=== PATIENT | male | born 1950 | race African-American/Black ===

== ENCOUNTER 2017-07-21 12:44 | Inpatient (IN) | payer MEDICARE, MEDICAID ==
--- NOTE | 2017-07-21 13:13 | ER Document Report ---
ED General - General Chief Complaint: High Blood Pressure Stated Complaint: HEADACHE Time Seen by Provider: 07/21/17 13:11 Notes: The patient is a 66-year-old male, past medical history hypertension, presents with 2 days of slurred speech and numbness in his right arm. He also had a dull headache. He has had this headache in the past and it has improved. Pt has a history of hypertension, but has never been prescribed any medications. He has not seen a PMD in 3 years. He denies chest pain, shortness of breath, focal weakness, blurry vision, back pain, ataxia, LOC or abdominal pain. TRAVEL OUTSIDE OF THE [place] IN LAST 30 DAYS: No - Related Data Allergies/Adverse Reactions: No Known Allergies Allergy (Verified 04/24/14 10:21) Past Medical History - General Information source: Patient - Social History Smoking Status: Unknown if Ever Smoked Family History: Reviewed & Not Pertinent - Past Medical History Cardiac Medical History: Reports: Hx Hypertension - Immunizations Hx Diphtheria, Pertussis, Tetanus Vaccination: No Review of Systems - Review of Systems Notes: REVIEW OF SYSTEMS: CONSTITUTIONAL: -fevers, -chills EENT: -eye pain, -difficulty swallowing, -nasal congestion CARDIOVASCULAR: -chest pain, -syncope. RESPIRATORY: -cough, -SOB GASTROINTESTINAL: -abdominal pain, -nausea, -vomiting, -diarrhea GENITOURINARY: -dysuria, -hematuria MUSCULOSKELETAL: -back pain, -neck pain SKIN: -rash or skin lesions. HEMATOLOGIC: -easy bruising or bleeding. LYMPHATIC: -swollen, enlarged glands. NEUROLOGICAL: -altered mental status or loss of consciousness, +headache, + slurred speech PSYCHIATRIC: -anxiety, -depression. ALL OTHER SYSTEMS REVIEWED AND NEGATIVE. Physical Exam - Vital signs Vitals: Resp 17 07/21/17 12:53 - Notes Notes: PHYSICAL EXAMINATION: GENERAL: Well-appearing, well-nourished and in no acute distress. HEAD: Atraumatic, normocephalic. EYES: Pupils equal round and reactive to light, extraocular movements intact, sclera anicteric, conjunctiva are normal. ENT: nares patent, oropharynx clear without exudates. Moist mucous membranes. NECK: Normal range of motion, supple without lymphadenopathy LUNGS: Breath sounds clear to auscultation bilaterally and equal. No wheezes rales or rhonchi. HEART: Regular rate and rhythm without murmurs ABDOMEN: Soft, nontender, normoactive bowel sounds. No guarding, no rebound. No masses appreciated. EXTREMITIES: Normal range of motion, no pitting or edema. No cyanosis. NEUROLOGICAL: Cranial nerves grossly intact. Mild dysarthria. 5/5 strength in all 4 extremities. Mild numbness n right arm. Normal gait. PSYCH: Normal mood, normal affect. SKIN: Warm, Dry, normal turgor, no rashes or lesions noted. Course - Re-evaluation Re-evalutation: Patient hypertensive with 2 days of dysarthria and mild sensory changes in his right upper extremity. His NIHSS is 2 and his ABCD2 score is 5. Pt is not a TPA candidate due to 2 days since onset of symptoms and his mild symptoms. Pt very hypertensive, but this is most likely chronic in nature. However, with his new neurologic symptoms, will begin Cardene drip with goal to lower MAP 25% ( from 123 to 93). (Labetalol on national shortage). 07/21/17 14:46 Spoke to Dolores Crowe NP, who has accepted patient to [facility] as Inpatient. Family and patient comfortable with plan. - Vital Signs Vital signs: Temp Pulse Resp BP Pulse Ox 97.5 F 21 H 188/93 H 98 07/21/17 13:52 07/21/17 14:31 07/21/17 14:31 07/21/17 14:31 - Laboratory Result Diagrams: 07/21/17 13:03 07/21/17 12:24 Laboratory results interpreted by me: 07/21/17 07/21/17 12:24 13:03 RDW 14.4 H ALT 20 L Creatine Kinase 30 L - Diagnostic Test Radiology reviewed: Image reviewed, Reports reviewed Radiology results interpreted by me: CT Head: NAD CXR: NAD Critical Care Note - Critical Care Note Total time excluding time spent on procedures (mins): 35 Discharge - Discharge Clinical Impression: Dysarthria, Right arm numbness, Hypertensive emergency CVA (cerebral vascular accident) Qualifiers: CVA mechanism: unspecified Qualified Code(s): I63.9 - Cerebral infarction, unspecified Condition: Stable Disposition: ADMITTED INPATIENT Admitting Provider: Hospitalist - Dolores Crowe Unit Admitted: [facility]
[2017-07-21 13:16] LABS: ABSOLUTE LYMPHOCYTES (AUTO) 2.3 10^3/uL (0.5-4.7); ABSOLUTE MONOCYTES (AUTO) 0.4 10^3/uL (0.1-1.4); ABSOLUTE NEUT (AUTO) 6.7 10^3/uL (1.7-8.2); BASOPHILS % (AUTO) 0.3 % (0-2); EOSINOPHILS % (AUTO) 0.1 % (0-6); HEMATOCRIT 46.5 % (37.9-51.0); HEMOGLOBIN 15.9 g/dL (13.5-17.0); MEAN CORPUSCULAR HEMOGLOBIN 32.3 pg (27.0-33.4); MEAN CORPUSCULAR HGB CONC 34.1 g/dL (32.0-36.0); MEAN CORPUSCULAR VOLUME 95 fl (80-97); MONOCYTES % (AUTO) 4.2 % (3-13); PLATELET COUNT 235 10^3/uL (150-450); RED BLOOD COUNT 4.92 10^6/uL (4.35-5.55); RED CELL DISTRIBUTION WIDTH 14.4 % (11.5-14.0); SEGMENTED NEUTROPHILS % (AUTO) 71.4 % (42-78); TOTAL CELLS COUNTED % (AUTO) 100 %; WHITE BLOOD COUNT 9.4 10^3/uL (4.0-10.5)
[2017-07-21 13:19] LABS: INTERNATIONAL RATION (INR) 0.92
[2017-07-21 13:20] LABS: PARTIAL THROMBOPLASTIN TIME 30.7 SEC (23.5-35.8)
[2017-07-21 13:22] LABS: PROTHROMBIN TIME 12.8 SEC (11.4-15.4)
--- NOTE | 2017-07-21 13:35 | RADIOLOGY REPORT (SQ) ---
EXAM DESCRIPTION: CT HEAD WITHOUT COMPLETED DATE/TIME: 07/21/2017 1:21 pm REASON FOR STUDY: slured speech COMPARISON: April 2014 TECHNIQUE: Axial images acquired through the brain without intravenous contrast. Images reviewed wi th bone, brain and subdural windows. Additional sagittal and coronal reconstructions were generated. Images stored on PACS. All CT scanners at this facility use dose modulation, iterative reconstruction, and/or weight based d osing when appropriate to reduce radiation dose to as low as reasonably achievable (ALARA). [facility]: Dose Right [facility]: CareDose [facility]: Dose Right [facility]: Teradose 4D [facility]: Smart Wego RADIATION DOSE: CT Rad equipment meets quality standard of care and radiation dose reduction techniq ues were employed. CTDIvol: 53.2 mGy. DLP: 1017 mGy-cm. mGy. LIMITATIONS: None. FINDINGS: VENTRICLES: Normal size and contour. CEREBRUM: No masses. No hemorrhage. No midline shift. No evidence for acute infarction. Normal gra y/white matter differentiation. No areas of low density in the white matter. CEREBELLUM: No masses. No hemorrhage. No alteration of density. No evidence for acute infarction. EXTRAAXIAL SPACES: No fluid collections. No masses. ORBITS AND GLOBE: No intra- or extraconal masses. Normal contour of globe without masses. CALVARIUM: No fracture. PARANASAL SINUSES: The previously described left maxillary mucosal polyp retention cyst is again iden tified. SOFT TISSUES: No mass or hematoma. OTHER: No other significant finding. IMPRESSION: No significant intracranial abnormalities were identified. No significant interval austin ge as compared to the previous study. Findings as noted above. EVIDENCE OF ACUTE STROKE: NO. COMMENT: Quality ID # [id number]: Final reports with documentation of one or more dose reduction techniques (e.g., Automated exposure control, adjustment of the mA and/or kV according to patient size, use of iterative reconstruction technique) TECHNICAL DOCUMENTATION: JOB ID: [id number] [employer]- All Rights Reserved Reading location - IP/workstation name: [email or web address]
[2017-07-21] MEDS ORDERED: LABETALOL HCL INJ 20 MG/4 ML DISP.SYRIN IV ONE (13:41)
--- NOTE | 2017-07-21 13:45 | RADIOLOGY REPORT (SQ) ---
EXAM DESCRIPTION: CHEST SINGLE VIEW COMPLETED DATE/TIME: 07/21/2017 1:20 pm REASON FOR STUDY: slured speech COMPARISON: April 2014 EXAM PARAMETERS: NUMBER OF VIEWS: One view. TECHNIQUE: Single frontal radiographic view of the chest acquired. RADIATION DOSE: NA LIMITATIONS: None. FINDINGS: LUNGS AND PLEURA: No opacities, masses or pneumothorax. No pleural effusion. MEDIASTINUM AND HILAR STRUCTURES: No masses. Contour normal. HEART AND VASCULAR STRUCTURES: Heart normal in size. Normal vasculature. BONES: No acute findings. HARDWARE: None in the chest. OTHER: No other significant finding. IMPRESSION: NO ACUTE RADIOGRAPHIC FINDING IN THE CHEST. TECHNICAL DOCUMENTATION: JOB ID: [id number] [employer]- All Rights Reserved Reading location - IP/workstation name: [email or web address]
--- NOTE | 2017-07-21 13:45 | ER Document Report ---
ED NIH Stroke Scale - NIH Stroke Scale When completed:: Before Alteplase *: 1. NIH scale should be completed with appropriate accompanying assessment tools. *: 2. The NIH should reflect what the patient is capable of doing and should not be coached by the clinician. 1a. Level of Consciousness: 0=Alert;keenly responsive -: 1=Drowsy -: 2=Obtunded -: 3=Coma/unresponsive or reflex to noxious stimuli. 1a. Responses: 0 1b. Orientation Questions: a. What month is it? -: b. How old are you? -: 0=Answers both questions correctly. -: 1=Answers one question correctly or patient is intubated or has orotracheal trauma. -: 2=Answers neither question correctly. 1b. Responses: 0 1c. Response to commands: a. Open and close eyes? -: b. Therapeutic Riding Instructor and release hand? -: Credit is given despite weakness. Demonstration of task is permitted. Substitute command if hands cannot be used. -: 0=Performs both tasks correctly -: 1=Performs one task correctly -: 2=Performs neither task correctly 1c. Responses: 0 2. Gaze: Establish eye contact and instruct patient to "Follow my finger" -: 0=Normal -: 1=Partial gaze palsy. Gaze is abnormal in one or both eyes, but where forced deviation or total gaze paresis is not present. -: 2=Forced deviation or total gaze paresis. 2. Responses: 0 3. Visual Pizano: Sees fingers in all four quadrants. -: 0=No visual loss. -: 1=Partial hemianopsia. -: 2=Complete hemianopsia. -: 3=Bilateral hemianopsia (including Cortical blindness) 3. Responses: 0 4. Facial Movement: Instruct patient to: -: a. Show me your teeth -: b. Raise your eyebrows -: c. Close your eyes -: d. Smile -: 0=Normal symmetrical movement -: 1=Minor paralysis (flattened nasolabial fold, asymmetry on smiling). -: 2=Partial paralysis (total or near total paralysis of lower face). -: 3=Complete paralysis of upper and lower face 4. Responses: 0 5. Motor functions (left arm): Alternate sides and extend each arm with palms down (90 degrees if sitting or 45 degrees for supine). -: 0=No drift;limb holds for full 10 seconds. -: 1=Drift; limb holds but drifts down before full 10 seconds, but does not hit bed. -: 2=Some effort against gravity; limb cannot get to or maintain position. -: 3=No effort against gravity; limb falls. -: 4=No movement. -: UN=Amputation, joint fusion, explain in comments. 5. Responses (left arm): 0 5. Motor Functions (right arm): Alternate sides and extend each arm with palms down (90 degrees if sitting or 45 degrees for supine). -: 0=No drift;limb holds for full 10 seconds. -: 1=Drift; limb holds but drifts down before full 10 seconds, but does not hit bed. -: 2=Some effort against gravity; limb cannot get to or maintain position. -: 3=No effort against gravity; limb falls. -: 4=No movement. -: UN=Amputation, joint fusion, explain in comments. 5. Responses (right arm): 0 6. Motor Functions (left leg): With patient lying supine, alternate sides and extend each leg (30 degrees always while supine). -: 0=No drift, leg holds position for full 5 seconds -: 1=Drift; leg falls before full 5 seconds but does not hit bed. -: 2=Some effort against gravity, leg falls to bed but some effort against gravity. -: 3=No effort against gravity, leg falls to bed immediately. -: 4=No movement. -: UN=Amputation, joint fusion; explain in comments. 6. Responses (left leg): 0 6. Motor Functions (right leg): With patient lying supine, alternate sides and extend each leg (30 degrees always while supine). -: 0=No drift, leg holds position for full 5 seconds -: 1=Drift; leg falls before full 5 seconds but does not hit bed. -: 2=Some effort against gravity, leg falls to bed but some effort against gravity. -: 3=No effort against gravity, leg falls to bed immediately. -: 4=No movement. -: UN=Amputation, joint fusion; explain in comments. 6. Responses (right leg): 0 7. Limb Ataxia: With eyes open instruct patient to: -: a. "Touch your finger to your nose". -: b. "Touch your heel to your teresa" -: 0=Absent -: 1=Present in one limb. -: 2=Present in two limbs. -: UN=Amputation or joint fusion; explain in comments. 7. Responses: 0 8. Sensory: Test sensation using pinprick or noxious stimuli. Test as many body parts as possible. -: 0=Normal;no sensory loss -: 1=Mile to moderate sensory loss (patient feels pin prick but is less sharp on affected side). -: 2=Severe or total sensory loss. 8. Responses: 1 9. Best Language: Instruct patient to: -: a. "Describe what you see in this picture." -: b. "Name the items in this picture." -: c. "Read these sentences." -: 0=No aphasia, normal -: 1=Mild to moderate aphasia. -: 2=Severe aphasia -: 3=Mute, global aphasia, no usable speech or auditory comprehension. 9. Responses: 0 10. Articulation, Dysarthia: Instruct patient to: -: "Read these words" or "Repeat these words" -: 0=Normal -: 1=Mild to moderate; patient may slur some words but can be understood without difficulty. -: 2=Severe; patients speech so slurred as to be unintelligible in the absence of dysphasia. -: UN=Intubated or other physical barrier, explain in comments. 10. Responses: 1 11. Extinction or inattention: 0=No abnormality -: 1= Visual, tactile, auditory, spatial, or personal inattention or extinction to bilateral simulation in one or the sensory modalities. -: 2=Profound jarret-inattention or jarret-inattention to more than one modality; does not recognize own hand. 11. Responses: 0 Total Score: 2
[2017-07-21] MEDS ORDERED: NICARDIPINE HCL RTU, ISO-OS 20 MG/200 ML RTUINJ IV PRN ×3 (13:56→16:14)
[2017-07-21 14:05] LABS: ALANINE AMINOTRANSFERASE 20 U/L (21-72); ALBUMIN 4.2 g/dL (3.5-5.0); ALKALINE PHOSPHATASE 87 U/L (38-126); ANION GAP 11 (5-19); ASPARTATE AMINO TRANSFERASE 21 U/L (17-59); BILIRUBIN,DIRECT 0.2 mg/dL (0.0-0.4); BILIRUBIN,TOTAL 0.3 mg/dL (0.2-1.3); BLOOD UREA NITROGEN 15 mg/dL (7-20); CARBON DIOXIDE 29 mmol/L (22-30); CHLORIDE 104 mmol/L (98-107); CREATINE KINASE 30 U/L (55-170); GLUCOSE 102 mg/dL (75-110); SODIUM 144.3 mmol/L (137-145); TOTAL PROTEIN 7.9 g/dL (6.3-8.2)
[2017-07-21] MEDS ORDERED: ASPIRIN 325 MG TABLET PO ONE (14:10)
[2017-07-21 14:17] LABS: CREATINE KINASE MB 0.24 ng/mL (<4.55)
[2017-07-21 14:20] LABS: TROPONIN I < 0.012 ng/mL
[2017-07-21] MEDS ORDERED: ONDANSETRON 4 MG TAB.RAPDIS PO PRN (15:41)
[2017-07-21] MEDS ORDERED: HYDRALAZINE HCL INJ/PF 20 MG/1 ML SDV IV PRN ×2 (16:06→16:14)
[2017-07-21] MEDS ORDERED: METOPROLOL TARTRATE PF/INJ 5 MG/5 ML SDV IV PRN ×2 (16:10→16:14)
--- NOTE | 2017-07-21 18:38 | PDOC H&P ---
History of Present Illness Admission Date/PCP: 07/21/17 16:33 Patient complains of: Headache. Left upper extremity weakness. History of Present Illness: FRANKLIN LEW is a 66 year old -[place] male who was brought to the emergency department by EMS when family reported that the patient began experiencing left upper extremity numbness and paralysis at 12 noon. Additionally, he was experiencing slurred speech and difficulty with word finding, unable to answer questions appropriately. History obtained from sister who currently lives with patient. The family reports that the patient had been complaining of a headache for the last 3 days. He took Motrin yesterday for his headache, but it offered no relief. Of note, the patient was admitted to [facility] approximately 3 years ago for hypertensive urgency, with the initial presenting symptom of severe headache. Since that time, the patient has not been taking antihypertensives nor has he seen a doctor. PMH includes HTN, hypertensive urgency, 21-wjpi-qrzj smoking history. Patient reportedly smokes 2 packs cigarettes per day. The patient presented to the emergency department with initial BP 213/99. Head CT normal, no evidence of hemorrhage, tumor, or other pathology. Chest x-ray benign, only demonstrating chronic COPD changes. EKG shows sinus bradycardia, no indication of ischemia or infarction. Troponin<0.012. The rest of the lab work was relatively benign. Blood pressure was initially controlled with Cardene gtt. upon assessment, the patient is resting comfortably in bed on room air. He is asleep but arousable. Patient is able to report his name, but is unable to answer time, place, situation appropriately. His speech is slurred. 4 /5 RUE & RLE strength. 5/5 LUE & LLE strength. No facial droop. PERRLA. Poor hand/eye coordination with both arms, particularly RUE. +dysmetria in RUE. Plan to admit to hospitalist service for acute CVA. Past Medical History Cardiac Medical History: Reports: Hypertension Past Surgical History Past Surgical History: Reports: None Social History Information Source: Patient Lives with: Family Smoking Status: Current Every Day Smoker Cigarettes Packs Per Day: 2 Number of Years Smokin Frequency of Alcohol Use: Rare Hx Recreational Drug Use: No Drugs: None - Advance Directive Resuscitation Status: Full Code Family History Family History: Malignancy Parental Family History Reviewed: Yes Children Family History Reviewed: Yes Sibling(s) Family History Reviewed.: Yes Medication/Allergy Home Medications: No Home Medications 07/21/17 Allergies/Adverse Reactions: No Known Allergies Allergy (Verified 07/21/17 15:20) Review of Systems ROS unobtainable: Due to mental status Physical Exam Vital Signs: Temp Pulse Resp BP Pulse Ox 97.5 F 46 L 21 H 166/69 H 97 07/21/17 13:52 07/21/17 17:58 07/21/17 17:58 07/21/17 17:58 07/21/17 17:58 General appearance: PRESENT: no acute distress, thin Eye exam: PRESENT: conjunctiva pink Mouth exam: PRESENT: moist Teeth exam: PRESENT: poor dentation Neck exam: PRESENT: full ROM Respiratory exam: PRESENT: clear to auscultation alfred, symmetrical, unlabored Cardiovascular exam: PRESENT: +S1, +S2 Pulses: PRESENT: normal radial pulses, normal dorsalis pedis pul Vascular exam: PRESENT: normal capillary refill GI/Abdominal exam: PRESENT: normal bowel sounds, soft. ABSENT: tenderness Rectal exam: PRESENT: deferred Extremities exam: ABSENT: full ROM - WEAKNESS TO RLE AND RUE Musculoskeletal exam: ABSENT: ambulatory, full ROM Neurological exam: PRESENT: alert, awake, oriented to person, oriented to place , other - DYSARTHRIA. ABSENT: oriented to time, oriented to situation Psychiatric exam: PRESENT: appropriate affect Skin exam: PRESENT: dry, normal color, warm Results Impressions: Chest X-Ray 07/21/17 13:03 IMPRESSION: NO ACUTE RADIOGRAPHIC FINDING IN THE CHEST. Head CT 07/21/17 13:03 IMPRESSION: No significant intracranial abnormalities were identified. No significant interval change as compared to the previous study. Findings as noted above. EVIDENCE OF ACUTE STROKE: NO. Status: Imported from PACS Assessment & Plan - Diagnosis (1) CVA (cerebral vascular accident) Qualifiers: CVA mechanism: unspecified Qualified Code(s): I63.9 - Cerebral infarction, unspecified Is this a current diagnosis for this admission?: Yes Plan: Family reports that at approximately 12 noon, the patient exhibited left upper extremity paralysis, the patient was having difficulty answering questions, and his speech was slurred. 3 day history of headache Patient was brought to the emergency department by EMS, his initial BP upon arrival was 213/[address] negative for hemorrhage or tumor HTN emergency initially treated with Cardene gtt, but able to wean off. Aspirin 325mg administered in ED Admit to IMCU for acute CVA Plan for stat MRI/MRA Plan for echocardiogram Plan for carotid Doppler Initiate statin therapy Initiate plavix 75mg PO daily According to 2018 AHA/ASA Guidelines for the Early Mgmt of Patients with Acute Ischemic Stroke, cautious lowering of blood pressure by 15% during initial 24hrs is suggested. This patient's target SBP is 180-220 for the first 24hrs, manage with PRN metoprolol and hydralazine After initial 24hrs plan for anti-HTN medication initiation for treatment of BP > 140/90 Will require formal speech evaluation PT/OT evaluation and treatment Smoking cessation counseling (2) Hypertensive emergency Is this a current diagnosis for this admission?: Yes Plan: Secondary to long-standing untreated hypertension. Patient presented to the emergency department with a BP 213/99 Initially treated with Cardene GTT but was able to wean off GOAL SBP 180-220 for initial 24hrs, manage with PRN metoprolol and hydralazine After initial 24hrs plan for anti-HTN medication initiation for treatment of BP > 140/90 PRN Hydralazine 10mg IV PRN Metoprolol 5mg IV Following the first 24hrs, will initiate antihypertensives if his BP is >140/90 (3) Dysarthria Is this a current diagnosis for this admission?: Yes Plan: Secondary to acute CVA. Patient speech is slurred and he has difficulty with word finding. Will require formal speech therapy evaluation. Remaining plan as above. (4) Right arm numbness Is this a current diagnosis for this admission?: Yes Plan: Likely secondary to acute CVA. Plan for PT/OT. Remaining plan as above (5) Tobacco abuse Is this a current diagnosis for this admission?: Yes Plan: Patient reportedly smokes 2 packs per day. 75-xaqs-arvq smoking history. Nicotine patch offered. - Time Time Spent: 30 to 50 Minutes Critical Time spent with patient: Less than 15 minutes Medications reviewed and adjusted accordingly: Yes Anticipated discharge: Home - Inpatient Certification Based on my medical assessment, after consideration of the patient's comorbidities, presenting symptoms, or acuity I expect that the services needed warrant INPATIENT care.: Yes I certify that my determination is in accordance with my understanding of Medicare's requirements for reasonable and necessary INPATIENT services [42 CFR 412.3e].: Yes Medical Necessity: Need For Continuous Telemetry Monitoring, Risk of Complication if Not Cared For in Hospital - Plan Summary Plan Summary: admit to hospitalist service for CVA. plan for MRI, ECHO, and carotid doppler. Additionally, plan for PT/OT evaluation and consult with [facility] stroke nurse. The patient will require a number of new medications and close outpatient followup once discharged from [facility].
--- NOTE | 2017-07-21 19:23 | RADIOLOGY REPORT (SQ) ---
EXAM DESCRIPTION: MRI HEAD WITHOUT COMPLETED DATE/TIME: 07/21/2017 6:53 pm REASON FOR STUDY: CVA COMPARISON: Earlier CT TECHNIQUE: Multiplanar imaging includes non-contrasted T1, T2, FLAIR, and Diffusion with ADC map seq uences. Images stored on PACS. LIMITATIONS: None. FINDINGS: ANATOMY: No anomalies. Normal vascular flow voids. Pituitary fossa normal. CSF SPACES: Normal in size and contour. No hemorrhage. CEREBRUM: Multiple high-signal intensity lesions scattered throughout the white matter on FLAIR imagi ng with distribution suggesting chronic micro-vascular ischemic change. No evidence of hemorrhage or extraaxial fluid collection. POSTERIOR FOSSA: Increased T2 signal in the left cerebellum. Internal auditory canals, cerebello-jenaro dorene angles, mastoids normal. DIFFUSION: Positive for acute or sub-acute infarction in multiple areas involving the left cerebellum , left occipital lobe, and left thalamus. ORBITS: No masses. Globes normal. PARANASAL SINUSES: No fluid levels. Mucosa normal. OTHER: No other significant finding. IMPRESSION: Positive for acute or sub-acute infarction in multiple areas involving the left cerebell um, left occipital lobe, and left thalamus. EVIDENCE OF ACUTE STROKE: Yes LEFT PULMONOLOGIST and left vertebrobasilar TECHNICAL DOCUMENTATION: JOB ID: [id number] [id number] 2010 [employer]- All Rights Reserved Reading location - IP/workstation name: [email or web address]
--- NOTE | 2017-07-21 19:28 | RADIOLOGY REPORT (SQ) ---
EXAM DESCRIPTION: MRA HEAD WITHOUT COMPLETED DATE/TIME: 07/21/2017 6:47 pm REASON FOR STUDY: CVA COMPARISON: None. TECHNIQUE: Axial 3-D clby-cd-iqnhev acquisition imaging performed through the brain in the area of t he beaver of Kapoor. Images reformatted using 3-D MIPS. LIMITATIONS: None. FINDINGS: SOURCE IMAGES: The left vertebral artery is occluded throughout the visualized course in t he upper cervical and intraspinal levels to the basilar confluence. The left posterior cerebral joseline ry is also occluded 6 mm after its basilar origin. No other occlusions are identified. . No large m asses. 3-D MIP: No aneurysm. OTHER: No other significant finding. SOURCE IMAGES: No large masses. 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 The left posterior cerebral artery is also oc cluded 6 mm after its basilar origin. No other occlusions are identified. TECHNICAL DOCUMENTATION: JOB ID: [id number] [place]-[id number] 2010 [employer]- All Rights Reserved Reading location - IP/workstation name: [email or web address]
--- NOTE | 2017-07-21 20:23 | EKG REPORT ---
SEVERITY:- ABNORMAL ECG - SINUS RHYTHM PROBABLE LEFT VENTRICULAR HYPERTROPHY ANTERIOR ST ELEVATION, PROBABLY DUE TO LVH : Confirmed by: Celestino Redmond MD 21-Jul-2017 20:22:36
[2017-07-21] MEDS: ATORVASTATIN CALCIUM 40 MG TABLET PO SCH (22:17)
[2017-07-21] MEDS: FAMOTIDINE 20 MG TABLET PO SCH (22:17)
[2017-07-22 05:27] LABS: ABSOLUTE LYMPHOCYTES (AUTO) 2.1 10^3/uL (0.5-4.7); ABSOLUTE MONOCYTES (AUTO) 0.6 10^3/uL (0.1-1.4); ABSOLUTE NEUT (AUTO) 7.9 10^3/uL (1.7-8.2); BASOPHILS % (AUTO) 0.3 % (0-2); EOSINOPHILS % (AUTO) 0.2 % (0-6); HEMATOCRIT 40.7 % (37.9-51.0); LYMPHOCYTES % (AUTO) 19.8 % (13-45); MEAN CORPUSCULAR HEMOGLOBIN 32.4 pg (27.0-33.4); MEAN CORPUSCULAR HGB CONC 34.4 g/dL (32.0-36.0); MEAN CORPUSCULAR VOLUME 94 fl (80-97); MONOCYTES % (AUTO) 5.3 % (3-13); PLATELET COUNT 209 10^3/uL (150-450); RED BLOOD COUNT 4.32 10^6/uL (4.35-5.55); RED CELL DISTRIBUTION WIDTH 14.4 % (11.5-14.0); SEGMENTED NEUTROPHILS % (AUTO) 74.4 % (42-78); TOTAL CELLS COUNTED % (AUTO) 100 %; WHITE BLOOD COUNT 10.6 10^3/uL (4.0-10.5)
[2017-07-22 06:00] LABS: ALANINE AMINOTRANSFERASE 15 U/L (21-72); ALBUMIN 3.4 g/dL (3.5-5.0); ALKALINE PHOSPHATASE 65 U/L (38-126); ANION GAP 11 (5-19); ASPARTATE AMINO TRANSFERASE 17 U/L (17-59); BILIRUBIN,DIRECT 0.3 mg/dL (0.0-0.4); BILIRUBIN,TOTAL 0.5 mg/dL (0.2-1.3); BLOOD UREA NITROGEN 13 mg/dL (7-20); CALCIUM 9.3 mg/dL (8.4-10.2); CARBON DIOXIDE 27 mmol/L (22-30); CHLORIDE 104 mmol/L (98-107); GLUCOSE 121 mg/dL (75-110); POTASSIUM 3.8 mmol/L (3.6-5.0); SODIUM 141.6 mmol/L (137-145); TOTAL PROTEIN 6.8 g/dL (6.3-8.2); TRIGLYCERIDES 67 mg/dL (<150)
[2017-07-22 06:11] LABS: DIRECT LDL 104 mg/dL (<100)
--- NOTE | 2017-07-22 07:29 | EKG REPORT ---
SEVERITY:- ABNORMAL ECG - SINUS BRADYCARDIA CONSIDER LEFT VENTRICULAR HYPERTROPHY : Confirmed by: Celestino Redmond MD 22-Jul-2017 07:28:20
[2017-07-22] MEDS: ENOXAPARIN SODIUM INJ 30 MG/0.3 ML DISP.SYRIN SUBCUT SCH (09:50)
[2017-07-22] MEDS: CLOPIDOGREL BISULFATE 75 MG TABLET PO SCH (09:50)
[2017-07-22] MEDS: FAMOTIDINE 20 MG TABLET PO SCH ×2 (09:50→22:50)
[2017-07-22] MEDS ORDERED: AMLODIPINE BESYLATE 10 MG TABLET PO ONE (12:00)
[2017-07-22] MEDS ORDERED: LISINOPRIL 10 MG TABLET PO ONE (12:00)
--- NOTE | 2017-07-22 13:24 | RADIOLOGY REPORT (SQ) ---
EXAM DESCRIPTION: CAROTID DOPPLER COMPLETED DATE/TIME: 07/22/2017 12:47 pm REASON FOR STUDY: CVA COMPARISON: None. TECHNIQUE: Grayscale ultrasound, Doppler velocity and spectra, and color Doppler images acquired of the extra-cranial carotid and vertebral arteries. Images stored on PACS. LIMITATIONS: None. FINDINGS: RIGHT CAROTID CCA Velocities: Within normal limits. ICA Velocities Peak systolic 0.9 m/s. End diastolic 0.17 m/s. Proximal ICA/CCA peak systolic ratio 1.0. Focal plaque in the carotid bulb. LEFT CAROTID CCA Velocities: Within normal limits. ICA Velocities Peak systolic 1.74 m/s. End diastolic 0.21 m/s. Proximal ICA/CCA peak systolic ratio 2.0. Focal plaque in the carotid bulb. VERTEBRAL ARTERIES: Anterograde flow in the right vertebral artery. Retrograde flow in the left vert ebral artery SUBCLAVIAN ARTERIES: No finding. OTHER: No other significant finding. IMPRESSION: 1. ELEVATED VELOCITY IN THE LEFT INTERNAL CAROTID ARTERY, LOWER END OF 50- 69% STENOSIS RANGE. LESS THAN 50% STENOSIS OF THE RIGHT INTERNAL CAROTID ARTERY. 2. 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 COMMENT: Quality ID #[id number]: Velocity criteria are extrapolated from the diameter data as defined by t he Society of Radiologists in Ultrasound Consensus Conference. Radiology 2003: 229; 340-346. TECHNICAL DOCUMENTATION: JOB ID: [id number] 2012 [employer]- All Rights Reserved Reading location - IP/workstation name: [facility]-RR
--- NOTE | 2017-07-22 20:49 | XCELERA REPORT ---
[address] [address] Transthoracic Echocardiogram Report Name: FRANKLIN LEW Age: 66 yrs Gender: Male : 1950 Patient Status: Inpatient Patient Location: [address] [place], [place] [id number] Study Date: 07/22/2017 10:03 AM Height: 70 in Weight: 146 lb BSA: 1.8 m2 Reason For Study: CVA Ordering Physician: ALVA MANTILLA Performed By: Rj Regan Interpretation Summary Calcified aortic root not enlarged. Mild AV sclerosis with no and no AR. normal 3 cusps, no vegetations. Mild Mitral annular calcification, no MS no MVP, no vegetations, but MV leaflets sl thickened. No LVH, normal hyperdynamic LVEF 70% with no LVdiastolic dysfunction, no regional wall motionn abnormality RH is normal, Mild TR with no pulm HTN RVSP 29 and normal. No ASD/PFO. MMode/2D Measurements & Calculations RVDd: 3.4 cm LVIDd: 4.6 cm FS: 40.6 % Ao root diam: 2.9 cm IVSd: 0.84 cm LVIDs: 2.8 cm EDV(Teich): 99.5 ml LVPWd: 0.91 cmESV(Teich): 28.4 ml Ao root area: 6.8 cm2 EF(Teich): 71.4 % LA dimension: 2.9 cm LVOT diam: 1.8 cm LVOT area: 2.6 cm2 Doppler Measurements & Calculations MV E max bradley: MV P1/2t max bradley: Ao V2 max: LV V1 max P.8 cm/sec 78.1 cm/sec 113.5 cm/sec 3.4 mmHg MV A max bradley: MV P1/2t: 48.1 msec Ao max PG: LV V1 max: 82.1 cm/sec MVA(P1/2t): 4.6 cm2 5.2 mmHg 91.8 cm/sec MV E/A: 0.97 MV dec slope: SOLANGE(V,D): 2.1 cm2 475.2 cm/sec2 MV dec time: 0.21 sec TV V2 max: PA V2 max: 255.2 cm/sec 88.3 cm/sec TV max PG: PA max P.1 mmHg 26.0 mmHg Left Ventricle The left ventricle is normal in size. There is normal left ventricular wall thickness. The left ventricular ejection fraction is normal. Doppler measurements suggest normal left ventricular diastolic function. No regional wall motion abnormalities noted. There is no thrombus. Right Ventricle The right ventricle is normal in size, thickness and function. Atria The right atrium is normal. The left atrial size is normal. There is no Doppler evidence for an interatrial shunt. Mitral Valve There is mild mitral annular calcification. The mitral valve leaflets are sclerotic and show some degree of functional abnormality. There is no evidence of mitral valve prolapse. There is no vegetation seen on the mitral valve. There is no mitral valve stenosis. There is a trace amount of mitral regurgitation. Aortic Valve The aortic valve opens well. The aortic valve is trileaflet. The aortic valve is sclerotic and shows some degree of functional abnormality. There is no aortic valvular vegetation. There is no aortic valve stenosis. No aortic regurgitation is present. Tricuspid Valve The tricuspid is normal in structure and function. There is no tricuspid valve prolapse. There is no tricuspid stenosis. There is a mild amount of tricuspid regurgitation. Best estimated RVSP is approximately 29 mm/Hg. Pulmonic Valve There is no pulmonic valvular regurgitation. Great Vessels There is aortic root sclerosis/calcification. Effusions There is no pericardial effusion. I WMSI = 1.00 % Normal = 100 Segments Size X - Cannot 1 - Normal 2 - 3 - Akinetic4 - 1-2 small Interpret Hypokinetic Dyskinetic 3-5 moderate 5 - 6-14 large Aneurysmal 15-16 diffuse : ALVA MANTILLA > Celestino Redmond
[2017-07-22] MEDS: HYDRALAZINE HCL INJ/PF 20 MG/1 ML SDV IV PRN (21:06)
[2017-07-22] MEDS ORDERED: METOCLOPRAMIDE HCL INJ/PF 10 MG/2 ML SDV IV ONE (22:45)
[2017-07-22] MEDS: ATORVASTATIN CALCIUM 40 MG TABLET PO SCH (22:49)
--- NOTE | 2017-07-22 23:35 | EKG REPORT ---
SEVERITY:- ABNORMAL ECG - INCOMPLETE ANALYSIS DUE TO MISSING DATA IN PRECORDIAL LEAD(V6) SINUS BRADYCARDIA SINUS PAUSE/ARREST WITH JUNCTIONAL ESCAPE PROBABLE LEFT VENTRICULAR HYPERTROPHY : Confirmed by: Celestino Redmond MD 22-Jul-2017 23:34:50
[2017-07-23] MEDS: HYDRALAZINE HCL INJ/PF 20 MG/1 ML SDV IV PRN (00:17)
[2017-07-23] MEDS ORDERED: HYDROCHLOROTHIAZIDE 25 MG TABLET PO SCH (06:15)
[2017-07-23] MEDS ORDERED: HYDROCHLOROTHIAZIDE 25 MG TABLET PO ONE (06:30)
[2017-07-23] MEDS ORDERED: ATORVASTATIN CALCIUM 40 MG TABLET PO ONE (06:30)
--- NOTE | 2017-07-23 06:32 | PDOC PROGRESS REPORT ---
Subjective Progress Note for:: 07/23/17 Subjective:: 66 y.o. M with a PMH of HTN presented to [facility] on 07/21/2017 for right-sided hemiparesis, expressive aphasia and slurred speech. Admitted to hospital service for acute stroke. Patient seen this morning on rounds, he is resting comfortably in bed on room air. He is arousable to verbal and tactile stimulation. The patient is able to state his name but is not able to answer any other questions appropriately. He is able to follow commands with his LUE and LLE. No gross motor movement in the RUE, extremity is flaccid. Minimal fine motor movement to the R hand. 2/5 strength to the RLE. Difficulty with hand eye coordination, RUE worse than LUE. No evidence of facial droop or tongue deviation. Sensation intact, patient denies paresthesia in any extremity. MRI head completed last night positive for acute infarction involving left RN TRANSPLANT and left vertebral basilar distribution - the left cerebellum, left occipital lobe, and left thalamus. MRA demonstrates occlusion of the left vertebral artery and left posterior cerebral artery. Reason For Visit: CVA, HYPERTENSIVE EMERGENCY Physical Exam Vital Signs: Temp Pulse Resp BP Pulse Ox 99.5 F 68 18 143/56 H 97 07/23/17 04:00 07/23/17 04:00 07/23/17 04:00 07/23/17 04:00 07/23/17 04:00 Intake & Output 07/21/17 07/22/17 07/23/17 06:59 06:59 06:59 Intake Total 200 348 Output Total 450 450 Balance -250 -102 Weight 57.3 kg General appearance: PRESENT: thin Eye exam: PRESENT: conjunctiva pink, PERRLA Mouth exam: PRESENT: moist Teeth exam: PRESENT: poor dentation Neck exam: PRESENT: full ROM, JVD Respiratory exam: PRESENT: clear to auscultation alfred, symmetrical, unlabored Cardiovascular exam: PRESENT: bradycardia, irregular rhythm, +S1, +S2 Pulses: PRESENT: normal radial pulses, normal dorsalis pedis pul GI/Abdominal exam: PRESENT: normal bowel sounds, soft. ABSENT: tenderness Rectal exam: PRESENT: deferred Extremities exam: ABSENT: full ROM, joint swelling, pedal edema Musculoskeletal exam: ABSENT: ambulatory, full ROM Neurological exam: PRESENT: awake, oriented to person. ABSENT: oriented to place, oriented to time, oriented to situation Psychiatric exam: PRESENT: flat affect Skin exam: PRESENT: dry, intact, normal color, warm Results Laboratory Results: 07/22/17 04:28 07/22/17 04:28 07/22/17 04:28 TSH 0.42 L 07/22/17 04:28 NT-Pro-B Natriuret Pep 745 Impressions: Brain MRI with MRA 07/21/17 00:00 IMPRESSION: The left vertebral artery is occluded throughout the visualized course in the upper cervical and intraspinal levels to the basilar confluence. The left posterior cerebral artery is also occluded 6 mm after its basilar origin. No other occlusions are identified. Head MRI 07/21/17 00:00 IMPRESSION: Positive for acute or sub-acute infarction in multiple areas involving the left cerebellum, left occipital lobe, and left thalamus. EVIDENCE OF ACUTE STROKE: Yes LEFT RN TRANSPLANT and left vertebrobasilar Chest X-Ray 07/21/17 13:03 IMPRESSION: NO ACUTE RADIOGRAPHIC FINDING IN THE CHEST. Head CT 07/21/17 13:03 IMPRESSION: No significant intracranial abnormalities were identified. No significant interval change as compared to the previous study. Findings as noted above. EVIDENCE OF ACUTE STROKE: NO. Carotid Doppler Study 07/22/17 00:00 IMPRESSION: 1. ELEVATED VELOCITY IN THE LEFT INTERNAL CAROTID ARTERY, LOWER END OF 50- 69% STENOSIS RANGE. LESS THAN 50% STENOSIS OF THE RIGHT INTERNAL CAROTID ARTERY. 2. 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 Status: Imported from PACS Assessment & Plan - Diagnosis (1) CVA (cerebral vascular accident) Qualifiers: CVA mechanism: unspecified Qualified Code(s): I63.9 - Cerebral infarction, unspecified Is this a current diagnosis for this admission?: Yes Plan: Family reports that at approximately 12 noon 07/21/2017, the patient exhibited left upper extremity paralysis, the patient was having difficulty answering questions, and his speech was slurred. 3 day history of headache Patient was brought to the emergency department by EMS, his initial BP upon arrival was 213/[address] negative for hemorrhage or tumor HTN emergency initially treated with Cardene gtt, but able to wean off. Aspirin 325mg administered in ED Admit to IM for acute CVA MRI/MRA positive for acute infarction involving left RN TRANSPLANT and left vertebral basilar distribution - the left cerebellum, left occipital lobe, and left thalamus. MRA demonstrates occlusion of the left vertebral artery and left posterior cerebral artery. echocardiogram complete, results pending carotid Doppler complete, results pending Continue statin therapy Continue plavix 75mg PO daily Continue ASA 81mg PO daily According to 2018 AHA/ASA Guidelines for the Early Mgmt of Patients with Acute Ischemic Stroke, cautious lowering of blood pressure by 15% during initial 24hrs is suggested. This patient's target SBP is 180-220 for the first 24hrs, manage with PRN metoprolol and hydralazine After initial 24hrs plan for anti-HTN medication initiation for treatment of BP > 140/90 Formal speech evaluation complete - recommends PT/OT evaluation and treatment Smoking cessation counseling (2) Hypertensive emergency Is this a current diagnosis for this admission?: Yes Plan: Secondary to long-standing untreated hypertension. Patient presented to the emergency department with a BP 213/99 Initially treated with Cardene GTT but was able to wean off GOAL SBP 180-220 for initial 24hrs, manage with PRN hydralazine After initial 24hrs plan for anti-HTN medication initiation for treatment of BP > 140/90 Initiate lisinopril p.o. and Norvasc p.o. PRN Hydralazine 10mg IV if his BP is >140/90 (3) Dysarthria Is this a current diagnosis for this admission?: Yes Plan: Secondary to acute CVA. Patient speech is slurred and he has difficulty with word finding. Formal speech therapy evaluation completed today, awaiting dietary recommendations. Remaining plan as above. (4) Right arm numbness Is this a current diagnosis for this admission?: Yes Plan: Likely secondary to acute CVA. Plan for PT/OT. Remaining plan as above (5) Tobacco abuse Is this a current diagnosis for this admission?: Yes Plan: Patient reportedly smokes 2 packs per day. [id number] smoking history. Nicotine patch offered. - Time Time Spent with patient: 15-24 minutes Medications reviewed and adjusted accordingly: Yes Anticipated discharge: Acute Rehab - Inpatient Certification Based on my medical assessment, after consideration of the patient's comorbidities, presenting symptoms, or acuity I expect that the services needed warrant INPATIENT care.: Yes I certify that my determination is in accordance with my understanding of Medicare's requirements for reasonable and necessary INPATIENT services [42 CFR 412.3e].: Yes Medical Necessity: Risk of Complication if Not Cared For in Hospital - Plan Summary Plan Summary: Next of kin is requesting consultation with neurology at [facility], to assess for possible transfer. Plan to consult later today. Family assured that they will be updated following discussion with [facility] Neurology.
[2017-07-23 06:33] LABS: ABSOLUTE BASOPHILS # (AUTO) 0.1 10^3/uL (0.0-0.2); ABSOLUTE LYMPHOCYTES (AUTO) 2.2 10^3/uL (0.5-4.7); ABSOLUTE MONOCYTES (AUTO) 0.7 10^3/uL (0.1-1.4); BASOPHILS % (AUTO) 0.7 % (0-2); EOSINOPHILS % (AUTO) 0.1 % (0-6); HEMOGLOBIN 14.7 g/dL (13.5-17.0); LYMPHOCYTES % (AUTO) 20.1 % (13-45); MEAN CORPUSCULAR HEMOGLOBIN 31.3 pg (27.0-33.4); MEAN CORPUSCULAR HGB CONC 33.3 g/dL (32.0-36.0); MEAN CORPUSCULAR VOLUME 94 fl (80-97); MONOCYTES % (AUTO) 6.5 % (3-13); PLATELET COUNT 219 10^3/uL (150-450); RED BLOOD COUNT 4.68 10^6/uL (4.35-5.55); RED CELL DISTRIBUTION WIDTH 14.3 % (11.5-14.0); SEGMENTED NEUTROPHILS % (AUTO) 72.6 % (42-78); TOTAL CELLS COUNTED % (AUTO) 100 %
[2017-07-23 06:47] LABS: ALANINE AMINOTRANSFERASE 23 U/L (21-72); ALBUMIN 3.7 g/dL (3.5-5.0); ALKALINE PHOSPHATASE 66 U/L (38-126); ANION GAP 11 (5-19); ASPARTATE AMINO TRANSFERASE 16 U/L (17-59); BILIRUBIN,DIRECT 0.2 mg/dL (0.0-0.4); BILIRUBIN,TOTAL 0.7 mg/dL (0.2-1.3); BLOOD UREA NITROGEN 15 mg/dL (7-20); CALCIUM 9.6 mg/dL (8.4-10.2); CARBON DIOXIDE 28 mmol/L (22-30); CHLORIDE 101 mmol/L (98-107); GLUCOSE 112 mg/dL (75-110); POTASSIUM 3.6 mmol/L (3.6-5.0); TOTAL PROTEIN 7.1 g/dL (6.3-8.2)
--- NOTE | 2017-07-23 07:49 | EKG REPORT ---
SEVERITY:- ABNORMAL ECG - SINUS RHYTHM PROBABLE LEFT VENTRICULAR HYPERTROPHY ABNORMAL T, CONSIDER ISCHEMIA, ANTERIOR LEADS : Confirmed by: Celestino Redmond MD 23-Jul-2017 07:49:04
[2017-07-23] MEDS: FAMOTIDINE 20 MG TABLET PO SCH ×2 (09:50→21:44)
[2017-07-23] MEDS: ENOXAPARIN SODIUM INJ 30 MG/0.3 ML DISP.SYRIN SUBCUT SCH (09:50)
[2017-07-23] MEDS: CLOPIDOGREL BISULFATE 75 MG TABLET PO SCH (09:51)
[2017-07-23] MEDS: ASPIRIN 81 MG TABLET, ENT COATED PO SCH (09:51)
[2017-07-23] MEDS: AMLODIPINE BESYLATE 10 MG TABLET PO SCH (09:51)
[2017-07-23] MEDS: LISINOPRIL 10 MG TABLET PO SCH (09:51)
[2017-07-23] MEDS ORDERED: LISINOPRIL 10 MG TABLET PO SCH (10:00)
--- NOTE | 2017-07-23 15:28 | PDOC PROGRESS REPORT ---
Subjective Progress Note for:: 07/23/17 Subjective:: 66 y.o. M with a PMH of HTN presented to [facility] on 07/21/2017 for right-sided hemiparesis, expressive aphasia and slurred speech. Admitted to hospital service for acute stroke. Patient seen this morning on rounds, he is resting comfortably in bed on room air. He is arousable to verbal and tactile stimulation. The patient is able to state his name but is not able to answer any other questions appropriately. He is able to follow commands with his LUE and LLE. No gross motor movement in the RUE, extremity is flaccid. Minimal fine motor movement to the R hand. 2/5 strength to the RLE. Difficulty with hand eye coordination, RUE worse than LUE. No evidence of facial droop, slight tongue deviation to the right. Sensation intact, patient denies paresthesia. Family requested a consult with [facility] neurology to request a possible transfer. The patient's case was discussed with a neurologist who states there is no additional treatment that can be offered at [facility]. He states the treatment that the patient is receiving at [facility] is appropriate for his diagnosis. [facility] Neurology declined the transfer. Daughter, Neisha, was called and notified. Reason For Visit: CVA, HYPERTENSIVE EMERGENCY Physical Exam Vital Signs: Temp Pulse Resp BP Pulse Ox 97.8 F 49 L 16 175/71 H 97 07/23/17 11:17 07/23/17 12:00 07/23/17 12:00 07/23/17 12:00 07/23/17 12:00 Intake & Output 07/22/17 07/23/17 07/24/17 06:59 06:59 06:59 Intake Total 200 351 100 Output Total 450 450 50 Balance -250 -99 50 Weight 57.3 kg Results Laboratory Results: 07/23/17 06:22 07/23/17 06:22 07/23/17 07/23/17 06:22 06:22 WBC 11.0 H RBC 4.68 Hgb 14.7 Hct 44.0 MCV 94 MCH 31.3 MCHC 33.3 RDW 14.3 H Plt Count 219 Seg Neutrophils % 72.6 Lymphocytes % 20.1 Monocytes % 6.5 Eosinophils % 0.1 Basophils % 0.7 Absolute Neutrophils 8.0 Absolute Lymphocytes 2.2 Absolute Monocytes 0.7 Absolute Eosinophils 0.0 Absolute Basophils 0.1 Sodium 140.0 Potassium 3.6 Chloride 101 Carbon Dioxide 28 Anion Gap 11 BUN 15 Creatinine 0.98 Est GFR ( Amer) > 60 Est GFR (Non-Af Amer) > 60 Glucose 112 H Calcium 9.6 Total Bilirubin 0.7 AST 16 L ALT 23 Alkaline Phosphatase 66 Total Protein 7.1 Albumin 3.7 07/22/17 04:28 NT-Pro-B Natriuret Pep 745 Impressions: Brain MRI with MRA 07/21/17 00:00 IMPRESSION: The left vertebral artery is occluded throughout the visualized course in the upper cervical and intraspinal levels to the basilar confluence. The left posterior cerebral artery is also occluded 6 mm after its basilar origin. No other occlusions are identified. Head MRI 07/21/17 00:00 IMPRESSION: Positive for acute or sub-acute infarction in multiple areas involving the left cerebellum, left occipital lobe, and left thalamus. 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 Head CT 07/21/17 13:03 IMPRESSION: No significant intracranial abnormalities were identified. No significant interval change as compared to the previous study. Findings as noted above. EVIDENCE OF ACUTE STROKE: NO. Carotid Doppler Study 07/22/17 00:00 IMPRESSION: 1. ELEVATED VELOCITY IN THE LEFT INTERNAL CAROTID ARTERY, LOWER END OF 50- 69% STENOSIS RANGE. LESS THAN 50% STENOSIS OF THE RIGHT INTERNAL CAROTID ARTERY. 2. 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 Assessment & Plan - Diagnosis (1) CVA (cerebral vascular accident) Qualifiers: CVA mechanism: unspecified Qualified Code(s): I63.9 - Cerebral infarction, unspecified Is this a current diagnosis for this admission?: Yes Plan: Patient presented with acute L sided hemiparesis and hypertensive emergency, initial BP upon arrival was 213/[address] negative for hemorrhage or tumor HTN emergency initially treated with Cardene gtt Aspirin 325mg administered in ED Admit to IMCU for acute CVA MRI/MRA positive for acute infarction involving left FLEXBOARD OPERATOR and left vertebral basilar distribution - the left cerebellum, left occipital lobe, and left thalamus. MRA demonstrates occlusion of the left vertebral artery and left posterior cerebral artery. 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 This patient's target SBP is 180-220 for the first 24hrs. After initial 24hrs plan for anti-HTN medication initiation for treatment of BP > 140/90 PT/OT evaluation and treatment Smoking cessation counseling Making arrangements to send patient to [facility] for [place]. (2) Hypertensive emergency Is this a current diagnosis for this admission?: Yes Plan: Secondary to long-standing untreated hypertension. Initially treated with Cardene GTT but was able to wean off Continue PO lisinopril, norvasc, and initiate PO hydralazine Plan to treat with antihypertensives if BP > 140/90 IV hydralazine as needed (3) Dysarthria Is this a current diagnosis for this admission?: Yes Plan: Secondary to acute CVA. Patient speech is slurred and he has difficulty with word finding. Formal speech therapy evaluation completed. Dietary recommends cardiac diet/regular consistency, but must be supervised when eating. Remaining plan as above. (4) Right arm numbness Is this a current diagnosis for this admission?: Yes Plan: Likely secondary to acute CVA. Plan for PT/OT. Remaining plan as above (5) Tobacco abuse Is this a current diagnosis for this admission?: Yes Plan: Patient reportedly smokes 2 packs per day. [id number] smoking history. Nicotine patch offered. - Time Time Spent with patient: 15-24 minutes Medications reviewed and adjusted accordingly: Yes Anticipated discharge: Home - Inpatient Certification Based on my medical assessment, after consideration of the patient's comorbidities, presenting symptoms, or acuity I expect that the services needed warrant INPATIENT care.: Yes I certify that my determination is in accordance with my understanding of Medicare's requirements for reasonable and necessary INPATIENT services [42 CFR 412.3e].: Yes Medical Necessity: Need For Continuous Telemetry Monitoring, Risk of Complication if Not Cared For in Hospital - Plan Summary Plan Summary: PLAN TO SEND PATIENT TO [facility] FOR [place] TO DETERMINE IF SOURCE OF STROKE IS CARDIAC EMBOLI. DISCHARGE TO ACUTE REHAB
[2017-07-23] MEDS: HYDROCHLOROTHIAZIDE 25 MG TABLET PO SCH (18:43)
[2017-07-23] MEDS: ATORVASTATIN CALCIUM 40 MG TABLET PO SCH (21:44)
[2017-07-24] MEDS: HYDROCHLOROTHIAZIDE 25 MG TABLET PO SCH ×2 (05:07→18:57)
[2017-07-24] MEDS: CLOPIDOGREL BISULFATE 75 MG TABLET PO SCH (09:39)
[2017-07-24] MEDS: FAMOTIDINE 20 MG TABLET PO SCH ×2 (09:39→21:23)
[2017-07-24] MEDS: LISINOPRIL 10 MG TABLET PO SCH (09:39)
[2017-07-24] MEDS: ASPIRIN 81 MG TABLET, ENT COATED PO SCH (09:40)
[2017-07-24] MEDS: AMLODIPINE BESYLATE 10 MG TABLET PO SCH (09:40)
[2017-07-24] MEDS: ENOXAPARIN SODIUM INJ 30 MG/0.3 ML DISP.SYRIN SUBCUT SCH (09:40)
--- NOTE | 2017-07-24 14:55 | PDOC PROGRESS REPORT ---
Subjective Progress Note for:: 07/24/17 Subjective:: 66 y.o. M with a PMH of HTN presented to [facility] on 07/21/2017 for right-sided hemiparesis, expressive aphasia and slurred speech. Admitted to hospital service for acute stroke. Patient seen this morning on rounds, he is resting comfortably in bed on room air. He is arousable to verbal and tactile stimulation. The patient is able to state his name and that he is in the hospital, he is not able to answer any other questions appropriately. He is able to follow commands with his LUE and LLE and (to the best of his ability) with the RUE and RLE. No gross motor movement in the RUE, extremity is flaccid. Minimal fine motor movement to the R hand. 3/5 strength to the RLE, which has improved since yesterday. Difficulty with hand eye coordination, RUE worse than LUE. Slight facial droop , slight tongue deviation to the right. Sensation intact, patient denies paresthesia. Plan to make arrangements for patient to travel to [facility] for ELTON. Reason For Visit: CVA, HYPERTENSIVE EMERGENCY Physical Exam Vital Signs: Temp Pulse Resp BP Pulse Ox 98.8 F 51 L 16 114/55 L 99 07/24/17 11:34 07/24/17 14:00 07/24/17 12:00 07/24/17 12:00 07/24/17 12:00 Intake & Output 07/23/17 07/24/17 07/25/17 06:59 06:59 06:59 Intake Total 351 535 275 Output Total 450 550 175 Balance -99 -15 100 Weight 68 kg General appearance: PRESENT: thin Head exam: PRESENT: atraumatic Eye exam: PRESENT: conjunctiva pink, PERRLA Mouth exam: PRESENT: moist Teeth exam: PRESENT: poor dentation Neck exam: PRESENT: full ROM, JVD Respiratory exam: PRESENT: clear to auscultation alfred, symmetrical, unlabored Cardiovascular exam: PRESENT: bradycardia, +S1, +S2 Pulses: PRESENT: normal radial pulses, normal dorsalis pedis pul GI/Abdominal exam: PRESENT: normal bowel sounds, soft. ABSENT: tenderness Rectal exam: PRESENT: deferred Extremities exam: ABSENT: full ROM, joint swelling, pedal edema Musculoskeletal exam: ABSENT: ambulatory, full ROM Neurological exam: PRESENT: alert, awake, oriented to person, oriented to place. ABSENT: oriented to time, oriented to situation, motor sensory deficit Skin exam: PRESENT: dry, intact, warm Results Laboratory Results: 07/23/17 06:22 07/23/17 06:22 07/22/17 04:28 NT-Pro-B Natriuret Pep 745 Impressions: Brain MRI with MRA 07/21/17 00:00 IMPRESSION: The left vertebral artery is occluded throughout the visualized course in the upper cervical and intraspinal levels to the basilar confluence. The left posterior cerebral artery is also occluded 6 mm after its basilar origin. No other occlusions are identified. Head MRI 07/21/17 00:00 IMPRESSION: Positive for acute or sub-acute infarction in multiple areas involving the left cerebellum, left occipital lobe, and left thalamus. EVIDENCE OF ACUTE STROKE: Yes LEFT DISTRICT COURT ADMINISTRATOR and left vertebrobasilar Chest X-Ray 07/21/17 13:03 IMPRESSION: NO ACUTE RADIOGRAPHIC FINDING IN THE CHEST. Head CT 07/21/17 13:03 IMPRESSION: No significant intracranial abnormalities were identified. No significant interval change as compared to the previous study. Findings as noted above. EVIDENCE OF ACUTE STROKE: NO. Carotid Doppler Study 07/22/17 00:00 IMPRESSION: 1. ELEVATED VELOCITY IN THE LEFT INTERNAL CAROTID ARTERY, LOWER END OF 50- 69% STENOSIS RANGE. LESS THAN 50% STENOSIS OF THE RIGHT INTERNAL CAROTID ARTERY. 2. 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 Status: Imported from PACS Assessment & Plan - Diagnosis (1) CVA (cerebral vascular accident) Qualifiers: CVA mechanism: unspecified Qualified Code(s): I63.9 - Cerebral infarction, unspecified Is this a current diagnosis for this admission?: Yes Plan: Patient presented with acute L sided hemiparesis and hypertensive emergency, initial BP upon arrival was 213/[address] negative for hemorrhage or tumor HTN emergency initially treated with Cardene gtt Aspirin 325mg administered in ED Admit to IMCU for acute CVA MRI/MRA positive for acute infarction involving left DISTRICT COURT ADMINISTRATOR and left vertebral basilar distribution - the left cerebellum, left occipital lobe, and left thalamus. MRA demonstrates occlusion of the left vertebral artery and left posterior cerebral artery. 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 After initial 24hrs plan for anti-HTN medication initiation for treatment of BP > 140/90 PT/OT evaluation and treatment Smoking cessation counseling Plan to make arrangements to send patient to [facility] for ELTON. (2) Hypertensive emergency Is this a current diagnosis for this admission?: Yes Plan: Secondary to long-standing untreated hypertension. Initially treated with Cardene GTT but was able to wean off Continue PO lisinopril, norvasc, and initiate PO hydralazine Plan to treat with antihypertensives if BP > 140/90 IV hydralazine as needed (3) Bradycardia Is this a current diagnosis for this admission?: Yes Plan: Sinus bradycardia, currently 45-60 bpm. No evidence of ectopy. No evidence of acute ischemia or infarction. Multiple EKGs all show same thing - sinus bradycardia Discussed with Dr. Miguel, he claims that patient's can experience bradycardia as a result of a stroke. As long as the patient's blood pressure remains within normal limits, the bradycardia does not require intervention (4) Dysarthria Is this a current diagnosis for this admission?: Yes Plan: Secondary to acute CVA. Patient speech is slurred but improving day by day, he has difficulty with word finding. +expressive aphasia Formal speech therapy evaluation completed. Dietary recommends cardiac diet/regular consistency, but must be supervised when eating. Remaining plan as above. (5) Right arm numbness Is this a current diagnosis for this admission?: Yes Plan: Likely secondary to acute CVA. Plan for PT/OT. Remaining plan as above (6) Tobacco abuse Is this a current diagnosis for this admission?: Yes Plan: Patient reportedly smokes 2 packs per day. 65-[id number] smoking history. Nicotine patch offered. - Time Time Spent with patient: 15-24 minutes Medications reviewed and adjusted accordingly: Yes Anticipated discharge: Acute Rehab - Inpatient Certification Based on my medical assessment, after consideration of the patient's comorbidities, presenting symptoms, or acuity I expect that the services needed warrant INPATIENT care.: Yes I certify that my determination is in accordance with my understanding of Medicare's requirements for reasonable and necessary INPATIENT services [42 CFR 412.3e].: Yes Medical Necessity: Risk of Complication if Not Cared For in Hospital - Plan Summary Plan Summary: Plan for ELTON at [facility] this week. 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
[2017-07-24] MEDS: SENNOSIDES/DOCUSATE 8.6-50 MG 1 EACH TABLET PO SCH (18:57)
[2017-07-24] MEDS: ATORVASTATIN CALCIUM 40 MG TABLET PO SCH (21:23)
[2017-07-25] MEDS: ACETAMINOPHEN 325 MG TABLET PO PRN (03:15)
[2017-07-25] MEDS: HYDROCHLOROTHIAZIDE 25 MG TABLET PO SCH ×2 (05:00→17:25)
[2017-07-25 06:07] LABS: HEMATOCRIT 44.6 % (37.9-51.0); HEMOGLOBIN 15.1 g/dL (13.5-17.0); MEAN CORPUSCULAR HEMOGLOBIN 31.9 pg (27.0-33.4); MEAN CORPUSCULAR HGB CONC 33.8 g/dL (32.0-36.0); MEAN CORPUSCULAR VOLUME 94 fl (80-97); PLATELET COUNT 210 10^3/uL (150-450); RED BLOOD COUNT 4.73 10^6/uL (4.35-5.55); RED CELL DISTRIBUTION WIDTH 14.6 % (11.5-14.0); WHITE BLOOD COUNT 9.7 10^3/uL (4.0-10.5)
[2017-07-25 06:39] LABS: ANION GAP 14 (5-19); BLOOD UREA NITROGEN 17 mg/dL (7-20); CALCIUM 9.6 mg/dL (8.4-10.2); CARBON DIOXIDE 29 mmol/L (22-30); CHLORIDE 97 mmol/L (98-107); GLUCOSE 120 mg/dL (75-110); PHOSPHORUS 4.7 mg/dL (2.5-4.5); POTASSIUM 4.1 mmol/L (3.6-5.0)
[2017-07-25] MEDS: LISINOPRIL 10 MG TABLET PO SCH (09:51)
[2017-07-25] MEDS: ASPIRIN 81 MG TABLET, ENT COATED PO SCH (09:51)
[2017-07-25] MEDS: CLOPIDOGREL BISULFATE 75 MG TABLET PO SCH (09:51)
[2017-07-25] MEDS: ENOXAPARIN SODIUM INJ 30 MG/0.3 ML DISP.SYRIN SUBCUT SCH (09:51)
[2017-07-25] MEDS: FAMOTIDINE 20 MG TABLET PO SCH ×2 (09:51→21:27)
[2017-07-25] MEDS: AMLODIPINE BESYLATE 10 MG TABLET PO SCH (09:51)
[2017-07-25] MEDS: POLYETHYLENE GLYCOL 3350 POWDER 17 GM/1 PACKET PO SCH (09:51)
[2017-07-25] MEDS: SENNOSIDES/DOCUSATE 8.6-50 MG 1 EACH TABLET PO SCH (10:00)
--- NOTE | 2017-07-25 17:45 | PDOC PROGRESS REPORT ---
Subjective Progress Note for:: 07/25/17 Subjective:: 66 y.o. M with a PMH of HTN presented to [facility] on 07/21/2017 for right-sided hemiparesis, expressive aphasia and slurred speech. Admitted to hospital service for acute stroke. The patient is seen on morning rounds with family members present. He is found resting in bed comfortably on room air. He is awake and conversational with clear speech no apparent expressive aphasia. He is alert and oriented to person , place, and situation; reporting the year of 1994 but correctly names the president. He is able to follow commands but with limited range of motion and strength to the right upper and lower extremity. Of note, the patient is able to straight leg lift his right leg today. Right upper extremity remains flaccid. The patient denies headache, dizziness, chest pain, palpitations, dyspnea, orthopnea, difficulty with word finding, speech, and swallowing. However, nursing reports that the patient is pocketing medications and still continues crushed medications. Arrangements have been made for the patient to receive a ELTON at [facility] tomorrow. Following exam, the patient should be ready for discharge to SNF for acute rehabilitation. Reason For Visit: CVA, HYPERTENSIVE EMERGENCY Physical Exam Vital Signs: Temp Pulse Resp BP Pulse Ox 97.9 F 57 L 16 130/68 H 100 07/25/17 15:33 07/25/17 15:33 07/25/17 15:33 07/25/17 15:33 07/25/17 15:33 Intake & Output 07/24/17 07/25/17 07/26/17 06:59 06:59 06:59 Intake Total 535 852 130 Output Total 550 800 250 Balance -15 52 -120 Weight 68 kg 65.2 kg General appearance: PRESENT: no acute distress, cooperative, thin, well- developed, well-nourished Head exam: PRESENT: atraumatic, normocephalic Eye exam: PRESENT: conjunctiva pink, EOMI, PERRLA. ABSENT: scleral icterus Mouth exam: PRESENT: moist, tongue midline Teeth exam: PRESENT: poor dentation Neck exam: ABSENT: carotid bruit, JVD, lymphadenopathy, thyromegaly Respiratory exam: PRESENT: clear to auscultation alfred. ABSENT: rales, rhonchi, wheezes Cardiovascular exam: PRESENT: bradycardia, +S1, +S2. ABSENT: diastolic murmur, rubs, systolic murmur Pulses: PRESENT: normal dorsalis pedis pul Vascular exam: PRESENT: normal capillary refill GI/Abdominal exam: PRESENT: normal bowel sounds, soft. ABSENT: distended, guarding, mass, organolmegaly, rebound, tenderness Rectal exam: PRESENT: deferred Extremities exam: ABSENT: calf tenderness, clubbing, pedal edema Neurological exam: PRESENT: alert, awake, oriented to person, oriented to place , oriented to situation, CN II-XII grossly intact, other - Right lower extremity weakness; 3/5 though improved from yesterday. Right upper extremity remains flaccid; health equipment servicer 1/5. ABSENT: oriented to time, motor sensory deficit Psychiatric exam: PRESENT: appropriate affect, normal mood. ABSENT: homicidal ideation, suicidal ideation Skin exam: PRESENT: dry, intact, warm. ABSENT: cyanosis, rash Results Laboratory Results: 07/25/17 05:07 07/25/17 05:07 07/25/17 07/25/17 05:07 05:07 WBC 9.7 RBC 4.73 Hgb 15.1 Hct 44.6 MCV 94 MCH 31.9 MCHC 33.8 RDW 14.6 H Plt Count 210 Sodium 140.0 Potassium 4.1 Chloride 97 L Carbon Dioxide 29 Anion Gap 14 BUN 17 Creatinine 1.11 Est GFR ( Amer) > 60 Est GFR (Non-Af Amer) > 60 Glucose 120 H Calcium 9.6 Phosphorus 4.7 H Magnesium 1.7 07/22/17 04:28 NT-Pro-B Natriuret Pep 745 Impressions: Brain MRI with MRA 07/21/17 00:00 IMPRESSION: The left vertebral artery is occluded throughout the visualized course in the upper cervical and intraspinal levels to the basilar confluence. The left posterior cerebral artery is also occluded 6 mm after its basilar origin. No other occlusions are identified. Head MRI 07/21/17 00:00 IMPRESSION: Positive for acute or sub-acute infarction in multiple areas involving the left cerebellum, left occipital lobe, and left thalamus. EVIDENCE OF ACUTE STROKE: Yes LEFT HAND SPRAY OPERATOR and left vertebrobasilar Chest X-Ray 07/21/17 13:03 IMPRESSION: NO ACUTE RADIOGRAPHIC FINDING IN THE CHEST. Head CT 07/21/17 13:03 IMPRESSION: No significant intracranial abnormalities were identified. No significant interval change as compared to the previous study. Findings as noted above. EVIDENCE OF ACUTE STROKE: NO. Carotid Doppler Study 07/22/17 00:00 IMPRESSION: 1. ELEVATED VELOCITY IN THE LEFT INTERNAL CAROTID ARTERY, LOWER END OF 50- 69% STENOSIS RANGE. LESS THAN 50% STENOSIS OF THE RIGHT INTERNAL CAROTID ARTERY. 2. 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 Assessment & Plan - Diagnosis (1) CVA (cerebral vascular accident) Qualifiers: CVA mechanism: unspecified Qualified Code(s): I63.9 - Cerebral infarction, unspecified Is this a current diagnosis for this admission?: Yes Plan: Patient presented with acute R sided hemiparesis and hypertensive emergency, initial BP upon arrival was 213/99. The patient and nursing report improved aphasia; now with clear speech. Improved dysphagia, though continues to require crushed medications. Improved RLE strength and coordination. RUE with improved mobility; though remains mostly flaccid with some indication of inattentiveness. Head CT negative for hemorrhage or tumor MRI/MRA positive for acute infarction involving left HAND SPRAY OPERATOR and left vertebral basilar distribution - the left cerebellum, left occipital lobe, and left thalamus. MRA demonstrates occlusion of the left vertebral artery and left posterior cerebral artery. 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 ELTON scheduled at [facility] tomorrow morning. Patient is admitted to [facility] for acute CVA Continue statin therapy Continue plavix 75mg PO daily Continue ASA 81mg PO daily Briefly discussed with patient and family that ELTON will confirm whether or not the patient will need to be discharged on anticoagulants. Now >48 hrs post CVA; have began blood pressure control with amlodipine, lisinopril, and HCTZ. IV hydralazine as needed. PT/OT/ST evaluation and treatment Smoking cessation counseling Anticipate SNF for acute rehabilitation. (2) Bradycardia Is this a current diagnosis for this admission?: Yes Plan: Sinus bradycardia, currently 45-60 bpm. No evidence of ectopy. No evidence of acute ischemia or infarction. Multiple EKGs all show same thing - sinus bradycardia The previous provider discussed bradycardia with with Dr. Miguel. Assures that bradycardia is likely result of CVA. No indication for management at this time. We will continue to monitor on telemetry. (3) Hypertensive emergency Is this a current diagnosis for this admission?: Yes Plan: Secondary to long-standing, untreated, hypertension. Patient was initially treated with a Cardene drip but was weaned off. Permissive hypertension was allowed following CVA. He is now been transitioned to p.o. amlodipine, lisinopril, and HCTZ. IV hydralazine is available for blood pressure control. (4) Tobacco abuse Is this a current diagnosis for this admission?: Yes Plan: Patient reports a 17-[id number]-anbu history; 2 packs per day currently. Smoking cessation is encouraged. Nicotine replacement therapy is offered. - Time Time Spent with patient: 25-34 minutes Medications reviewed and adjusted accordingly: Yes Anticipated discharge: Acute Rehab Within: within 48 hours
[2017-07-25] MEDS: ATORVASTATIN CALCIUM 40 MG TABLET PO SCH (21:27)
[2017-07-26 05:06] LABS: HEMATOCRIT 44.7 % (37.9-51.0); HEMOGLOBIN 15.1 g/dL (13.5-17.0); MEAN CORPUSCULAR HEMOGLOBIN 31.8 pg (27.0-33.4); MEAN CORPUSCULAR HGB CONC 33.7 g/dL (32.0-36.0); MEAN CORPUSCULAR VOLUME 94 fl (80-97); PLATELET COUNT 216 10^3/uL (150-450); RED BLOOD COUNT 4.75 10^6/uL (4.35-5.55); RED CELL DISTRIBUTION WIDTH 14.3 % (11.5-14.0); WHITE BLOOD COUNT 9.2 10^3/uL (4.0-10.5)
[2017-07-26 05:41] LABS: ANION GAP 12 (5-19); BLOOD UREA NITROGEN 27 mg/dL (7-20); CALCIUM 9.3 mg/dL (8.4-10.2); CARBON DIOXIDE 29 mmol/L (22-30); CHLORIDE 100 mmol/L (98-107); GLUCOSE 105 mg/dL (75-110); PHOSPHORUS 4.8 mg/dL (2.5-4.5); POTASSIUM 4.3 mmol/L (3.6-5.0); SODIUM 140.8 mmol/L (137-145)
[2017-07-26] MEDS: HYDROCHLOROTHIAZIDE 25 MG TABLET PO SCH ×2 (07:57→17:42)
[2017-07-26] MEDS: ENOXAPARIN SODIUM INJ 30 MG/0.3 ML DISP.SYRIN SUBCUT SCH (13:06)
[2017-07-26] MEDS: ASPIRIN 81 MG TABLET, CHEWABLE PO SCH (13:07)
[2017-07-26] MEDS: FAMOTIDINE 20 MG TABLET PO SCH ×2 (13:07→21:58)
[2017-07-26] MEDS: AMLODIPINE BESYLATE 10 MG TABLET PO SCH (13:07)
[2017-07-26] MEDS: LISINOPRIL 10 MG TABLET PO SCH (13:07)
[2017-07-26] MEDS: CLOPIDOGREL BISULFATE 75 MG TABLET PO SCH (13:07)
[2017-07-26] MEDS: POLYETHYLENE GLYCOL 3350 POWDER 17 GM/1 PACKET PO SCH (13:07)
--- NOTE | 2017-07-26 18:10 | PDOC PROGRESS REPORT ---
Subjective Progress Note for:: 07/26/17 Subjective:: 66 y.o. M with a PMH of HTN presented to [facility] on 07/21/2017 for right-sided hemiparesis, expressive aphasia and slurred speech. Admitted to hospital service for acute stroke. The patient is seen on rounds [facility]. He is found resting in bed comfortably on room air. He is awake and conversational with clear speech no apparent expressive aphasia; requesting to eat. The patient denies headache, dizziness, chest pain, palpitations, dyspnea, orthopnea, difficulty with word finding, speech, and swallowing. Reason For Visit: CVA, HYPERTENSIVE EMERGENCY Physical Exam Vital Signs: Temp Pulse Resp BP Pulse Ox 98.0 F 55 L 16 122/56 L 97 07/26/17 15:59 07/26/17 15:59 07/26/17 15:59 07/26/17 15:59 07/26/17 15:59 Intake & Output 07/25/17 07/26/17 07/27/17 06:59 06:59 06:59 Intake Total 852 567 Output Total 800 551 Balance 52 16 Weight 65.2 kg 62.6 kg General appearance: PRESENT: no acute distress, thin, well-developed, well- nourished Head exam: PRESENT: atraumatic, normocephalic Eye exam: PRESENT: conjunctiva pink, EOMI, PERRLA. ABSENT: scleral icterus Mouth exam: PRESENT: moist, tongue midline Teeth exam: PRESENT: poor dentation Neck exam: ABSENT: carotid bruit, JVD, lymphadenopathy, thyromegaly Respiratory exam: PRESENT: clear to auscultation alfred, symmetrical, unlabored. ABSENT: rales, rhonchi, wheezes Cardiovascular exam: PRESENT: bradycardia, +S1, +S2. ABSENT: diastolic murmur, rubs, systolic murmur Pulses: PRESENT: normal dorsalis pedis pul Vascular exam: PRESENT: normal capillary refill GI/Abdominal exam: PRESENT: normal bowel sounds, soft. ABSENT: distended, guarding, mass, organolmegaly, rebound, tenderness Rectal exam: PRESENT: deferred Extremities exam: ABSENT: calf tenderness, clubbing, pedal edema Neurological exam: PRESENT: alert, awake, oriented to person, oriented to place , oriented to time, oriented to situation, CN II-XII grossly intact, other - Right lower extremity weakness 3/5. 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 ABSENT: motor sensory deficit Psychiatric exam: PRESENT: appropriate affect, normal mood. ABSENT: homicidal ideation, suicidal ideation Skin exam: PRESENT: dry, intact, warm. ABSENT: cyanosis, rash Results Laboratory Results: 07/26/17 04:05 07/26/17 04:05 07/26/17 07/26/17 04:05 04:05 WBC 9.2 RBC 4.75 Hgb 15.1 Hct 44.7 MCV 94 MCH 31.8 MCHC 33.7 RDW 14.3 H Plt Count 216 Sodium 140.8 Potassium 4.3 Chloride 100 Carbon Dioxide 29 Anion Gap 12 BUN 27 H Creatinine 1.24 Est GFR ( Amer) > 60 Est GFR (Non-Af Amer) 59 L Glucose 105 Calcium 9.3 Phosphorus 4.8 H Magnesium 1.8 07/22/17 04:28 NT-Pro-B Natriuret Pep 745 Impressions: Brain MRI with MRA 07/21/17 00:00 IMPRESSION: The left vertebral artery is occluded throughout the visualized course in the upper cervical and intraspinal levels to the basilar confluence. The left posterior cerebral artery is also occluded 6 mm after its basilar origin. No other occlusions are identified. Head MRI 07/21/17 00:00 IMPRESSION: Positive for acute or sub-acute infarction in multiple areas involving the left cerebellum, left occipital lobe, and left thalamus. EVIDENCE OF ACUTE STROKE: Yes LEFT THERAPIST RADIATION and left vertebrobasilar Chest X-Ray 07/21/17 13:03 IMPRESSION: NO ACUTE RADIOGRAPHIC FINDING IN THE CHEST. Head CT 07/21/17 13:03 IMPRESSION: No significant intracranial abnormalities were identified. No significant interval change as compared to the previous study. Findings as noted above. EVIDENCE OF ACUTE STROKE: NO. Carotid Doppler Study 07/22/17 00:00 IMPRESSION: 1. ELEVATED VELOCITY IN THE LEFT INTERNAL CAROTID ARTERY, LOWER END OF 50- 69% STENOSIS RANGE. LESS THAN 50% STENOSIS OF THE RIGHT INTERNAL CAROTID ARTERY. 2. 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 Assessment & Plan - Diagnosis (1) CVA (cerebral vascular accident) Qualifiers: CVA mechanism: unspecified Qualified Code(s): I63.9 - Cerebral infarction, unspecified Is this a current diagnosis for this admission?: Yes Plan: Patient presented with acute R sided hemiparesis and hypertensive emergency, initial BP upon arrival was 213/99. The patient and nursing report improved aphasia; now with clear speech. Improved dysphagia, though continues to require crushed medications. Improved RLE strength and coordination. RUE with improved mobility; though remains mostly flaccid with some indication of inattentiveness. Head CT negative for hemorrhage or tumor MRI/MRA positive for acute infarction involving left THERAPIST RADIATION and left vertebral basilar distribution - the left cerebellum, left occipital lobe, and left thalamus. MRA demonstrates occlusion of the left vertebral artery and left posterior cerebral artery. 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 [facility] for acute CVA Continue statin therapy Continue plavix 75mg PO daily Continue ASA 81mg PO daily Now >48 hrs post CVA; have began blood pressure control with amlodipine, lisinopril, and HCTZ. IV hydralazine as needed. PT/OT/ST evaluation and treatment Smoking cessation counseling Stable for d/c to SNF for acute rehabilitation. (2) Bradycardia Is this a current diagnosis for this admission?: Yes Plan: Sinus bradycardia, currently 45-60 bpm. No evidence of ectopy. No evidence of acute ischemia or infarction. Multiple EKGs all show same thing - sinus bradycardia The previous provider discussed bradycardia with with Dr. Miguel. Assures that bradycardia is likely result of CVA. No indication for management at this time. We will continue to monitor on telemetry. (3) Hypertensive emergency Is this a current diagnosis for this admission?: Yes Plan: Secondary to long-standing, untreated, hypertension. Patient was initially treated with a Cardene drip but was weaned off. Permissive hypertension was allowed following CVA. Continue p.o. amlodipine, lisinopril, and HCTZ. IV hydralazine is available for blood pressure control. (4) Tobacco abuse Is this a current diagnosis for this admission?: Yes Plan: Patient reports a 72-[id number] history; 2 packs per day currently. Smoking cessation is encouraged. Nicotine replacement therapy is offered. - Time Time Spent with patient: Less than 15 minutes Anticipated discharge: Acute Rehab Within: when bed available
[2017-07-26] MEDS: ATORVASTATIN CALCIUM 40 MG TABLET PO SCH (21:56)
[2017-07-27] MEDS: ACETAMINOPHEN 325 MG TABLET PO PRN (00:42)
[2017-07-27] MEDS: HYDROCHLOROTHIAZIDE 25 MG TABLET PO SCH ×2 (05:14→17:28)
[2017-07-27 05:20] LABS: HEMATOCRIT 42.4 % (37.9-51.0); HEMOGLOBIN 14.3 g/dL (13.5-17.0); MEAN CORPUSCULAR HEMOGLOBIN 31.6 pg (27.0-33.4); MEAN CORPUSCULAR HGB CONC 33.7 g/dL (32.0-36.0); MEAN CORPUSCULAR VOLUME 94 fl (80-97); PLATELET COUNT 202 10^3/uL (150-450); RED BLOOD COUNT 4.51 10^6/uL (4.35-5.55); RED CELL DISTRIBUTION WIDTH 14.3 % (11.5-14.0); WHITE BLOOD COUNT 8.6 10^3/uL (4.0-10.5)
[2017-07-27 05:45] LABS: ANION GAP 10 (5-19); BLOOD UREA NITROGEN 28 mg/dL (7-20); CALCIUM 9.2 mg/dL (8.4-10.2); CARBON DIOXIDE 29 mmol/L (22-30); CHLORIDE 101 mmol/L (98-107); GLUCOSE 101 mg/dL (75-110); POTASSIUM 4.9 mmol/L (3.6-5.0); SODIUM 139.8 mmol/L (137-145)
[2017-07-27] MEDS: AMLODIPINE BESYLATE 10 MG TABLET PO SCH (09:43)
[2017-07-27] MEDS: ASPIRIN 81 MG TABLET, CHEWABLE PO SCH (09:43)
[2017-07-27] MEDS: LISINOPRIL 10 MG TABLET PO SCH (09:43)
[2017-07-27] MEDS: ENOXAPARIN SODIUM INJ 30 MG/0.3 ML DISP.SYRIN SUBCUT SCH (09:44)
[2017-07-27] MEDS: CLOPIDOGREL BISULFATE 75 MG TABLET PO SCH (09:44)
[2017-07-27] MEDS: FAMOTIDINE 20 MG TABLET PO SCH ×2 (09:44→22:06)
[2017-07-27] MEDS: POLYETHYLENE GLYCOL 3350 POWDER 17 GM/1 PACKET PO SCH (09:58)
[2017-07-27] MEDS: ATORVASTATIN CALCIUM 40 MG TABLET PO SCH (22:06)
--- NOTE | 2017-07-27 22:28 | PDOC PROGRESS REPORT ---
Subjective Progress Note for:: 07/27/17 Subjective:: 66 y.o. M with a PMH of HTN presented to [facility] on 07/21/2017 for right-sided hemiparesis, expressive aphasia and slurred speech. Admitted to hospital service for acute stroke. The patient is seen on rounds with his sister (who he lives with) present. He is found resting in bed comfortably on room air getting ready to eat his breakfast. He is awake and conversational with clear speech no apparent expressive aphasia. The patient denies headache, dizziness, chest pain, palpitations, dyspnea, orthopnea, difficulty with word finding, speech, and swallowing. The ELTON results (negative study) were reviewed with the patient and family member. Discussed readiness for discharge to acute rehabilitation. Other than arranging placement, they have no questions at this time. Reason For Visit: CVA, HYPERTENSIVE EMERGENCY Physical Exam Vital Signs: Temp Pulse Resp BP Pulse Ox 97.7 F 55 L 18 117/63 98 07/27/17 19:16 07/27/17 19:16 07/27/17 19:16 07/27/17 19:16 07/27/17 19:16 Intake & Output 07/26/17 07/27/17 07/28/17 06:59 06:59 06:59 Intake Total 567 330 328 Output Total 551 150 450 Balance 16 180 -122 Weight 62.6 kg 62.6 kg General appearance: PRESENT: no acute distress, cooperative, thin, well- developed, well-nourished Head exam: PRESENT: atraumatic, normocephalic Eye exam: PRESENT: conjunctiva pink, EOMI, PERRLA. ABSENT: scleral icterus Mouth exam: PRESENT: moist, tongue midline Neck exam: ABSENT: carotid bruit, JVD, lymphadenopathy, thyromegaly Respiratory exam: PRESENT: clear to auscultation alfred. ABSENT: rales, rhonchi, wheezes Cardiovascular exam: PRESENT: RRR. ABSENT: diastolic murmur, rubs, systolic murmur Pulses: PRESENT: normal dorsalis pedis pul Vascular exam: PRESENT: normal capillary refill GI/Abdominal exam: PRESENT: normal bowel sounds, soft. ABSENT: distended, guarding, mass, organolmegaly, rebound, tenderness Rectal exam: PRESENT: deferred Extremities exam: PRESENT: full ROM. ABSENT: calf tenderness, clubbing, pedal edema Neurological exam: PRESENT: alert, awake, oriented to person, oriented to place , oriented to time, oriented to situation, CN II-XII grossly intact, other - Right lower extremity weakness 3/5. Right upper extremity remains flaccid; bulb filler 1/5. ABSENT: motor sensory deficit Psychiatric exam: PRESENT: appropriate affect, normal mood. ABSENT: homicidal ideation, suicidal ideation Skin exam: PRESENT: dry, intact, warm. ABSENT: cyanosis, rash Results Laboratory Results: 07/27/17 04:30 07/27/17 04:30 07/27/17 07/27/17 04:30 04:30 WBC 8.6 RBC 4.51 Hgb 14.3 Hct 42.4 MCV 94 MCH 31.6 MCHC 33.7 RDW 14.3 H Plt Count 202 Sodium 139.8 Potassium 4.9 Chloride 101 Carbon Dioxide 29 Anion Gap 10 BUN 28 H Creatinine 1.19 Est GFR ( Amer) > 60 Est GFR (Non-Af Amer) > 60 Glucose 101 Calcium 9.2 Phosphorus 4.0 Magnesium 1.8 07/22/17 04:28 NT-Pro-B Natriuret Pep 745 Impressions: Brain MRI with MRA 07/21/17 00:00 IMPRESSION: The left vertebral artery is occluded throughout the visualized course in the upper cervical and intraspinal levels to the basilar confluence. The left posterior cerebral artery is also occluded 6 mm after its basilar origin. No other occlusions are identified. Head MRI 07/21/17 00:00 IMPRESSION: Positive for acute or sub-acute infarction in multiple areas involving the left cerebellum, left occipital lobe, and left thalamus. EVIDENCE OF ACUTE STROKE: Yes LEFT CORE SHAPER and left vertebrobasilar Chest X-Ray 07/21/17 13:03 IMPRESSION: NO ACUTE RADIOGRAPHIC FINDING IN THE CHEST. Head CT 07/21/17 13:03 IMPRESSION: No significant intracranial abnormalities were identified. No significant interval change as compared to the previous study. Findings as noted above. EVIDENCE OF ACUTE STROKE: NO. Carotid Doppler Study 07/22/17 00:00 IMPRESSION: 1. ELEVATED VELOCITY IN THE LEFT INTERNAL CAROTID ARTERY, LOWER END OF 50- 69% STENOSIS RANGE. LESS THAN 50% STENOSIS OF THE RIGHT INTERNAL CAROTID ARTERY. 2. 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 Assessment & Plan - Diagnosis (1) CVA (cerebral vascular accident) Qualifiers: CVA mechanism: unspecified Qualified Code(s): I63.9 - Cerebral infarction, unspecified Is this a current diagnosis for this admission?: Yes Plan: Patient presented with acute R sided hemiparesis and hypertensive emergency, initial BP upon arrival was 213/99. The patient and nursing report improved aphasia; now with clear speech. Improved dysphagia, though continues to require crushed medications. Improved RLE strength and coordination. RUE with improved mobility; though remains mostly flaccid with some indication of inattentiveness. Head CT negative for hemorrhage or tumor MRI/MRA positive for acute infarction involving left CORE SHAPER and left vertebral basilar distribution - the left cerebellum, left occipital lobe, and left thalamus. MRA demonstrates occlusion of the left vertebral artery and left posterior cerebral artery. 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 ELTON negative for thrombus. Has remained in NSR or Sinus vanessa throughout admission. Patient is admitted to [facility] for acute CVA Continue statin therapy Continue plavix 75mg PO daily Continue ASA 81mg PO daily Now >48 hrs post CVA; have began blood pressure control with amlodipine, lisinopril, and HCTZ. IV hydralazine as needed. PT/OT/ST evaluation and treatment Smoking cessation counseling No indication for chronic anticoagulation. Stable for d/c to acute rehabilitation. (2) Bradycardia Is this a current diagnosis for this admission?: Yes Plan: Sinus bradycardia, currently 45-60 bpm. No evidence of ectopy. No evidence of acute ischemia or infarction. Multiple EKGs all show same thing - sinus bradycardia The previous provider discussed bradycardia with with Dr. Miguel. Assures that bradycardia is likely result of CVA. No indication for management at this time. We will continue to monitor on telemetry. (3) Hypertensive emergency Is this a current diagnosis for this admission?: Yes Plan: Secondary to long-standing, untreated, hypertension. Patient was initially treated with a Cardene drip but was weaned off. Permissive hypertension was allowed following CVA. Continue p.o. amlodipine, lisinopril, and HCTZ. IV hydralazine is available for blood pressure control. (4) Tobacco abuse Is this a current diagnosis for this admission?: Yes Plan: Patient reports a 65-dutn-ccpf history; 2 packs per day currently. Smoking cessation is encouraged. Nicotine replacement therapy is offered. - Time Time Spent with patient: Less than 15 minutes Medications reviewed and adjusted accordingly: Yes Anticipated discharge: Acute Rehab Within: within 24 hours
[2017-07-28] MEDS: HYDROCHLOROTHIAZIDE 25 MG TABLET PO SCH ×2 (06:20→18:12)
[2017-07-28] MEDS: ASPIRIN 81 MG TABLET, CHEWABLE PO SCH (09:48)
[2017-07-28] MEDS: CLOPIDOGREL BISULFATE 75 MG TABLET PO SCH (09:48)
[2017-07-28] MEDS: LISINOPRIL 10 MG TABLET PO SCH (09:48)
[2017-07-28] MEDS: FAMOTIDINE 20 MG TABLET PO SCH ×2 (09:48→21:48)
[2017-07-28] MEDS: AMLODIPINE BESYLATE 10 MG TABLET PO SCH (09:48)
[2017-07-28] MEDS: ENOXAPARIN SODIUM INJ 30 MG/0.3 ML DISP.SYRIN SUBCUT SCH (09:49)
[2017-07-28] MEDS: POLYETHYLENE GLYCOL 3350 POWDER 17 GM/1 PACKET PO SCH (09:49)
--- NOTE | 2017-07-28 11:33 | PDOC TRANSFER SUMMARY ---
General - Admit/Disc Date/PCP Admission Date/Primary Care Provider: 07/21/17 16:33 Discharge Date: 07/28/17 - Discharge Diagnosis (1) CVA (cerebral vascular accident) Is this a current diagnosis for this admission?: Yes Summary: Patient presented with stroke like symptoms; residual right-sided weakness (RUE> RLE). Has demonstrated gradual improvement in function throughout course of admission. Alert and oriented 4. Head CT negative for hemorrhage or tumor MRI/MRA positive for acute infarction involving left FACTORY ASSEMBLER and left vertebral basilar distribution - the left cerebellum, left occipital lobe, and left thalamus. MRA demonstrates occlusion of the left vertebral artery and left posterior cerebral artery. 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 ELTON negative for thrombus. Has remained in NSR or Sinus vanessa throughout admission. Hemoglobin A1c normal. Patient has participated with PT/OT; ambulatory 40 feet with frontwheel walker and standby assistance. Evaluated by speech therapy; cleared for thin liquids and small bites with strict aspiration precautions. Was placed on mechanically chopped diet for safety. No evidence of aspiration. Patient was started on aspirin, Plavix, and high-dose statin therapy. Following allowance for permissive hypertension, patient was placed on multiple antihypertensives (amlodipine, lisinopril, hydrochlorothiazide) for blood pressure control. Arrangements have been made for the patient to discharge to [facility] for acute rehabilitation. (2) Bradycardia Is this a current diagnosis for this admission?: Yes Summary: Sinus bradycardia, currently 45-60 bpm. No evidence of ectopy. No evidence of acute ischemia or infarction. Multiple EKGs all show same thing - sinus bradycardia Discussed bradycardia with Transmission Technician; assures that bradycardia is likely result of CVA. No indication for management at this time. (3) Hypertensive emergency Is this a current diagnosis for this admission?: Yes Summary: Secondary to long-standing, untreated, hypertension. Patient was initially treated with a Cardene drip but was weaned off. Permissive hypertension was allowed following CVA. Now controlled with p.o. amlodipine, lisinopril, and HCTZ. (4) Tobacco abuse Is this a current diagnosis for this admission?: Yes Summary: Patient reports a 47-couc-gmtz history; 2 packs per day currently. Smoking cessation is encouraged. - Additional Information Resuscitation Status: Full Code Discharge Diet: Cardiac Discharge Activity: Activity As Tolerated, Balance Activity w/Rest, Supervised Activity - Acute Rehab Prescriptions: Amlodipine Besylate [Norvasc 10 mg Tablet] 10 mg PO DAILY #30 tablet Aspirin [Aspirin 81 mg Chewable Tablet] 81 mg PO DAILY #30 tab.chew Atorvastatin Calcium [Lipitor 40 mg Tablet] 80 mg PO QHS #60 tablet Clopidogrel Bisulfate [Plavix 75 mg Tablet] 75 mg PO DAILY #30 tablet Hydrochlorothiazide [Hydrodiuril 25 mg Tablet] 25 mg PO Q12A #60 tablet Lisinopril [Prinivil 10 mg Tablet] 20 mg PO DAILY #30 tablet Home Medications: Acetaminophen [Tylenol 325 mg Tablet] 650 mg PO Q4HP PRN tablet 07/27/17 Amlodipine Besylate [Norvasc 10 mg Tablet] 10 mg PO DAILY #30 tablet 07/27/17 Aspirin [Aspirin 81 mg Chewable Tablet] 81 mg PO DAILY #30 tab.chew 07/27/17 Atorvastatin Calcium [Lipitor 40 mg Tablet] 80 mg PO QHS #60 tablet 07/27/17 Clopidogrel Bisulfate [Plavix 75 mg Tablet] 75 mg PO DAILY #30 tablet 07/27/17 Hydrochlorothiazide [Hydrodiuril 25 mg Tablet] 25 mg PO Q12A #60 tablet Lisinopril [Prinivil 10 mg Tablet] 20 mg PO DAILY #30 tablet 07/27/17 History of Present Illness Admission Date/PCP: 07/21/17 16:33 History of Present Illness: Per H&P by MARCELO Sampson/Dr. Aguilar: FRANKLIN LEW is a 66 year old - [place] male who was brought to the emergency department by EMS when family reported that the patient began experiencing left upper extremity numbness and paralysis at 12 noon. Additionally, he was experiencing slurred speech and difficulty with word finding, unable to answer questions appropriately. History obtained from sister who currently lives with patient. The family reports that the patient had been complaining of a headache for the last 3 days. He took Motrin yesterday for his headache, but it offered no relief. Of note, the patient was admitted to [facility] approximately 3 years ago for hypertensive urgency, with the initial presenting symptom of severe headache. Since that time, the patient has not been taking antihypertensives nor has he seen a doctor. PMH includes HTN, hypertensive urgency, [id number] smoking history. Patient reportedly smokes 2 packs cigarettes per day. The patient presented to the emergency department with initial BP 213/99. Head CT normal, no evidence of hemorrhage, tumor, or other pathology. Chest x-ray benign, only demonstrating chronic COPD changes. EKG shows sinus bradycardia, no indication of ischemia or infarction. Troponin<0.012. The rest of the lab work was relatively benign. Blood pressure was initially controlled with Cardene gtt. upon assessment, the patient is resting comfortably in bed on room air. He is asleep but arousable. Patient is able to report his name, but is unable to answer time, place, situation appropriately. His speech is slurred. 4 /5 RUE & RLE strength. 5/5 LUE & LLE strength. No facial droop. PERRLA. Poor hand/eye coordination with both arms, particularly RUE. +dysmetria in RUE. Plan to admit to hospitalist service for acute CVA. Physical Exam Vital Signs: Temp Pulse Resp BP Pulse Ox 97.7 F 58 L 12 113/57 L 96 07/28/17 08:00 07/28/17 08:00 07/28/17 08:00 07/28/17 08:00 07/28/17 08:00 Intake & Output 07/27/17 07/28/17 07/29/17 06:59 06:59 06:59 Intake Total 330 558 Output Total 150 1250 Balance 180 -692 Weight 62.6 kg 61.6 kg General appearance: PRESENT: no acute distress, cooperative, thin, well- developed, well-nourished Head exam: PRESENT: atraumatic, normocephalic Eye exam: PRESENT: conjunctiva pink, EOMI, PERRLA. ABSENT: scleral icterus Mouth exam: PRESENT: moist, tongue midline Neck exam: ABSENT: carotid bruit, JVD, lymphadenopathy, thyromegaly Respiratory exam: PRESENT: clear to auscultation alfred, symmetrical, unlabored. ABSENT: rales, rhonchi, wheezes Cardiovascular exam: PRESENT: bradycardia, RRR, +S1, +S2. ABSENT: diastolic murmur, rubs, systolic murmur Pulses: PRESENT: normal dorsalis pedis pul Vascular exam: PRESENT: normal capillary refill GI/Abdominal exam: PRESENT: normal bowel sounds, soft. ABSENT: distended, guarding, mass, organolmegaly, rebound, tenderness Rectal exam: PRESENT: deferred Extremities exam: PRESENT: full ROM. ABSENT: calf tenderness, clubbing, pedal edema Musculoskeletal exam: PRESENT: ambulatory - 2-3 steps with standby assistance Neurological exam: PRESENT: alert, awake, oriented to person, oriented to place , oriented to time, oriented to situation, CN II-XII grossly intact, other - Right lower extremity weakness 3/5. Right upper extremity remains flaccid; counter caser 1/5. ABSENT: motor sensory deficit Psychiatric exam: PRESENT: appropriate affect, normal mood. ABSENT: homicidal ideation, suicidal ideation Skin exam: PRESENT: dry, intact, warm. ABSENT: cyanosis, rash Results Laboratory Results: 07/27/17 04:30 07/27/17 04:30 07/22/17 04:28 NT-Pro-B Natriuret Pep 745 Impressions: Brain MRI with MRA 07/21/17 00:00 IMPRESSION: The left vertebral artery is occluded throughout the visualized course in the upper cervical and intraspinal levels to the basilar confluence. The left posterior cerebral artery is also occluded 6 mm after its basilar origin. No other occlusions are identified. Head MRI 07/21/17 00:00 IMPRESSION: Positive for acute or sub-acute infarction in multiple areas involving the left cerebellum, left occipital lobe, and left thalamus. EVIDENCE OF ACUTE STROKE: Yes LEFT FACTORY ASSEMBLER and left vertebrobasilar Chest X-Ray 07/21/17 13:03 IMPRESSION: NO ACUTE RADIOGRAPHIC FINDING IN THE CHEST. Head CT 07/21/17 13:03 IMPRESSION: No significant intracranial abnormalities were identified. No significant interval change as compared to the previous study. Findings as noted above. EVIDENCE OF ACUTE STROKE: NO. Carotid Doppler Study 07/22/17 00:00 IMPRESSION: 1. ELEVATED VELOCITY IN THE LEFT INTERNAL CAROTID ARTERY, LOWER END OF 50- 69% STENOSIS RANGE. LESS THAN 50% STENOSIS OF THE RIGHT INTERNAL CAROTID ARTERY. 2. 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 Transfer Plan - Disposition Transfer Plan: Discharge to [facility] acute rehabilitation. - Time Spent with Patient Time spent with patient: Less than 30 Minutes Qualifiers - * PATIENT BEING DISCHARGED WITH ANY OF THE FOLLOWING DIAGNOSIS: Stroke Stroke Pt being discharged on Anti-thrombolytic therapy?: Yes Stroke Pt being discharged on Anti-coagulation therapy?: No Reason(s) for not prescribing Anti-coagulation therapy:: Not indicated Stroke Pt being discharged on Statins?: Yes Plan Discharge Plan: Discharge to [facility] for acute rehabilitation. Follow-up with primary care provider within 1 week of discharge from acute rehab. Recommend evaluation by cardiovascular surgeon for evaluation of left internal carotid stenosis and retrograde flow in the left vertebral artery consistent with subclavian steal.
[2017-07-28] MEDS: ATORVASTATIN CALCIUM 40 MG TABLET PO SCH (21:49)
[2017-07-29] MEDS: HYDROCHLOROTHIAZIDE 25 MG TABLET PO SCH (07:01)
[2017-07-29 09:18] VITALS: BP 116/62
[2017-07-29] MEDS: AMLODIPINE BESYLATE 10 MG TABLET PO SCH (10:19)
[2017-07-29] MEDS: ASPIRIN 81 MG TABLET, CHEWABLE PO SCH (10:19)
[2017-07-29] MEDS: LISINOPRIL 10 MG TABLET PO SCH (10:19)
[2017-07-29] MEDS: FAMOTIDINE 20 MG TABLET PO SCH (10:19)
[2017-07-29] MEDS: CLOPIDOGREL BISULFATE 75 MG TABLET PO SCH (10:19)
[2017-07-29] MEDS: ENOXAPARIN SODIUM INJ 30 MG/0.3 ML DISP.SYRIN SUBCUT SCH (10:19)
[2017-07-29] MEDS: POLYETHYLENE GLYCOL 3350 POWDER 17 GM/1 PACKET PO SCH (10:19)
== END 2017-07-29 10:40 | DRG 64 ==
LOC: ER 12:44 → UNDOADMIN 15:24 → EH 15:24 → UNDOADMIN 15:42 → EH 15:42 → INTOOBSV 16:33 → OBSVTOIN 16:33 → 3N 19:17
PROVIDERS: ADMIT Internal Medicine; ATTEND Internal Medicine
DX: I63.532 Cerebral infarction due to unspecified occlusion or stenosis of left posterior cerebral artery (principal); I63.212 Cerebral infarction due to unspecified occlusion or stenosis of left vertebral artery; G81.91 Hemiplegia, unspecified affecting right dominant side; I16.1 Hypertensive emergency; R47.01 Aphasia; R00.1 Bradycardia, unspecified; R47.1 Dysarthria and anarthria; R47.81 Slurred speech; R29.702 NIHSS score 2; I10 Essential (primary) hypertension; R51 Headache; F17.210 Nicotine dependence, cigarettes, uncomplicated
CPT/HCPCS: 36415; 70450; 70544; 70551; 71045; 80048; 80053; 80061; 82550; 82553; 83036; 83735; 83880; 84100; 84443; 84484; 85025; 85027; 85610; 85730; 93005; 93010; 93306; 93880; 96374; 99291; G8978-GP; G8979-GP; G8987-GO; G8988-GO; G8996-GN; G8997-GN; G9159-GN; G9160-GN; J0360; J1650; J2765; J3490

== ENCOUNTER → 2017-09-07 | Outpatient (CLI) | payer MEDICARE, MEDICAID ==
--- NOTE | 2017-09-07 12:30 | RADIOLOGY REPORT (SQ) ---
EXAM DESCRIPTION: U/S ABDOMEN LIMITED W/O DOP COMPLETED DATE/TIME: 09/07/2017 8:34 am REASON FOR STUDY: ABN RESULTS OF LIVER FUNCTION TEST R94.5 ABNORMAL RESULTS OF LIVER FUNCTION STUDI ES COMPARISON: None. TECHNIQUE: Dynamic and static grayscale images acquired of the abdomen and recorded on PACS. Additio nal selected color Doppler and spectral images recorded. LIMITATIONS: None. FINDINGS: PANCREAS: No masses. Visualized pancreatic duct normal caliber. LIVER: No masses. Echotexture normal. LIVER VASCULATURE: Normal directional flow of the main portal vein and hepatic veins. GALLBLADDER: No stones. Normal wall thickness. No pericholecystic fluid. ULTRASOUND-DETECTED MORENO'S SIGN: Negative. INTRAHEPATIC DUCTS AND COMMON DUCT: CBD and intrahepatic ducts normal caliber. No filling defects. INFERIOR VENA CAVA: Normal flow. AORTA: No aneurysm. RIGHT KIDNEY: Normal size. Normal echogenicity. No solid or suspicious masses. No hydronephrosis. No calcifications. PERITONEAL AND RIGHT PLEURAL SPACE: No ascites or effusions. OTHER: No other significant findings. IMPRESSION: NORMAL RIGHT UPPER QUADRANT ULTRASOUND. TECHNICAL DOCUMENTATION: JOB ID: [id number] plate- All Rights Reserved Reading location - IP/workstation name: [email or web address]
== END ==
LOC: RAD 07:41
PROVIDERS: ATTEND Internal Medicine Gastroenterology
DX: R94.5 Abnormal results of liver function studies (principal)
CPT/HCPCS: 76705

== ENCOUNTER 2017-09-08 01:05 | Inpatient (IN) | payer MEDICARE, MEDICAID ==
--- NOTE | 2017-09-08 01:45 | ER Document Report ---
ED General - General Chief Complaint: Fall Stated Complaint: FALL Time Seen by Provider: 09/08/17 01:45 Notes: This is a 66-year-old male with a subacute history of CVA. Was hospitalized. Undergoing rehab at this time. Back at home. Over the last couple of days apparently patient has been having some dysuria. Increased weakness all over. Not taking in as much liquids. Patient states that he has had a couple episodes today where he felt hot. Chills. Denies any abdominal pain, chest pain or shortness of breath at this time. Family members are present with him and states that he reports falling over but this was not witnessed. TRAVEL OUTSIDE OF THE [place] IN LAST 30 DAYS: No - HPI Onset: Yesterday Onset/Duration: Gradual - Related Data Allergies/Adverse Reactions: No Known Allergies Allergy (Verified 07/21/17 15:20) Past Medical History - General Information source: Patient, [facility] Records - Social History Smoking Status: Smoker,Current Status Unk Frequency of alcohol use: None Drug Abuse: None Lives with: Family Family History: Malignancy - Medical History Notes: CVA - Past Medical History Cardiac Medical History: Reports: Hx Hypertension Renal/ Medical History: Denies: Hx Peritoneal Dialysis - Immunizations Hx Diphtheria, Pertussis, Tetanus Vaccination: No Review of Systems - Review of Systems Constitutional: Fever, Malaise, Weakness EENT: denies: Double vision, Difficulty swallowing, Mouth pain Cardiovascular: Dizziness. denies: Chest pain, Palpitations, Heart racing Respiratory: denies: Cough, Hurts to breathe, Short of breath, Wheezing Gastrointestinal: denies: Abdominal pain, Diarrhea, Nausea, Vomiting Genitourinary: Burning, Dysuria, Urgency. denies: Discharge, Flank pain Musculoskeletal: denies: Back pain, Joint pain, Muscle pain, Leg swelling Skin: denies: Change in color, Dryness, Lesions, Lumps, Rash Hematologic/Lymphatic: denies: Anemia, Easy bleeding, Easy bruising Neurological/Psychological: Confusion, Weakness. denies: Sensory change, Paralysis, Seizure, Headaches, Numbness Physical Exam - Vital signs Vitals: Temp Pulse Resp BP Pulse Ox 100.4 F 110 H 16 135/70 H 94 09/08/17 01:13 09/08/17 01:13 09/08/17 01:13 09/08/17 01:13 09/08/17 01:13 Interpretation: Tachycardic - General General appearance: Appears well, Alert - HEENT Head: Normocephalic, Atraumatic Eyes: Normal Pupils: PERRL - Respiratory Respiratory status: No respiratory distress Chest status: Nontender Breath sounds: Normal Chest palpation: Normal - Cardiovascular Rhythm: Tachycardia Heart sounds: Normal auscultation Murmur: No - Abdominal Inspection: Normal Distension: No distension Bowel sounds: Normal Tenderness: Nontender Organomegaly: No organomegaly - Back Back: Normal, Nontender - Extremities General upper extremity: Normal inspection, Nontender, Normal color, Normal ROM , Normal temperature General lower extremity: Normal inspection, Nontender, Normal color, Normal ROM , Normal temperature, Normal weight bearing. No: Rochelle's sign - Neurological Neuro grossly intact: Yes Cognition: Normal Orientation: AAOx4 [place] Coma Scale Eye Opening: Spontaneous Justyn Coma Scale Verbal: Oriented Justyn Coma Scale Motor: Obeys Commands Justyn Coma Scale Total: 15 Speech: Normal Cranial nerves: Normal. 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 No: Weakness Sensory: Normal Notes: for a patient who just recently had a CVA there is no major or significant neurological deficits appreciated on physical exam as documented above. - Psychological Associated symptoms: Normal affect, Normal mood - Skin Skin Temperature: Warm Skin Moisture: Dry Skin Color: Normal Course - Re-evaluation Re-evalutation: 09/08/17 03:49 Patient with fairly unremarkable exam. No nuchal rigidity. No significant abdominal pain. Laboratory studies initially ordered including CBC and chemistry as well as urinalysis based on his history of dysuria. CBC elevated at 22,000. Patient still unable to urinate after drinking normally. At this time concern exists obviously for significant infection. Blood cultures and lactic acid ordered. Chest x-ray and head CT ordered. These are pending at time of sign out at 4 AM. Patient cares been transferred over to Dr. Valle at this time for review of x-ray, urinalysis CT and reassess. 09/08/17 03:51 - Vital Signs Vital signs: Temp Pulse Resp BP Pulse Ox 100.4 F 110 H 32 H 126/64 H 95 09/08/17 01:13 09/08/17 01:13 09/08/17 03:01 09/08/17 03:01 09/08/17 03:01 - Laboratory Result Diagrams: 09/08/17 02:15 09/08/17 02:15 Laboratory results interpreted by me: 09/08/17 09/08/17 09/08/17 02:15 02:15 02:15 WBC 22.4 H RBC 3.81 L Hgb 11.7 L Hct 34.8 L RDW 14.1 H Lymphocytes % (Manual) 11 L Abs Neuts (Manual) 17.5 H Abs Monocytes (Manual) 2.5 H PT APTT Glucose 123 H Alkaline Phosphatase 154 H Creatine Kinase 25 L 09/08/17 02:15 WBC RBC Hgb Hct RDW Lymphocytes % (Manual) Abs Neuts (Manual) Abs Monocytes (Manual) PT 16.2 H APTT 46.4 H Glucose Alkaline Phosphatase Creatine Kinase Discharge - Discharge Referrals: KENISHA VAZQUEZ MD [ACTIVE STAFF] - Follow up as needed
[2017-09-08] MEDS ORDERED: ACETAMINOPHEN 325 MG TABLET PO ONE (02:01)
[2017-09-08 02:36] LABS: HEMATOCRIT 34.8 % (37.9-51.0); HEMOGLOBIN 11.7 g/dL (13.5-17.0); MEAN CORPUSCULAR HEMOGLOBIN 30.7 pg (27.0-33.4); MEAN CORPUSCULAR HGB CONC 33.6 g/dL (32.0-36.0); MEAN CORPUSCULAR VOLUME 91 fl (80-97); PLATELET COUNT 205 10^3/uL (150-450); RED BLOOD COUNT 3.81 10^6/uL (4.35-5.55); RED CELL DISTRIBUTION WIDTH 14.1 % (11.5-14.0); WHITE BLOOD COUNT 22.4 10^3/uL (4.0-10.5)
[2017-09-08 02:46] LABS: ALANINE AMINOTRANSFERASE 54 U/L (21-72); ALBUMIN 3.5 g/dL (3.5-5.0); ALKALINE PHOSPHATASE 154 U/L (38-126); ANION GAP 13 (5-19); ASPARTATE AMINO TRANSFERASE 31 U/L (17-59); BILIRUBIN,DIRECT 0.4 mg/dL (0.0-0.4); BILIRUBIN,TOTAL 1.1 mg/dL (0.2-1.3); BLOOD UREA NITROGEN 14 mg/dL (7-20); CALCIUM 8.9 mg/dL (8.4-10.2); CARBON DIOXIDE 24 mmol/L (22-30); CHLORIDE 100 mmol/L (98-107); GLUCOSE 123 mg/dL (75-110); POTASSIUM 3.9 mmol/L (3.6-5.0); SODIUM 137.1 mmol/L (137-145); TOTAL PROTEIN 7.4 g/dL (6.3-8.2)
[2017-09-08 03:12] LABS: ABSOLUTE LYMPHOCYTES# (MANUAL) 2.5 10^3/uL (0.5-4.7); ABSOLUTE MONOCYTES # (MANUAL) 2.5 10^3/uL (0.1-1.4); ABSOLUTE NEUTROPHILS# (MANUAL) 17.5 10^3/uL (1.7-8.2); BASOPHILS % (MANUAL) 0 % (0-2); EOSINOPHILS % (MANUAL) 0 % (0-6); LYMPHOCYTES % (MANUAL) 11 % (13-45); MONOCYTES % (MANUAL) 11 % (3-13); SEGMENTED NEUTROPHILS % (MAN) 78 % (42-78); TOTAL CELLS COUNTED 100
[2017-09-08 03:13] LABS: ANISOCYTOSIS SLIGHT; PLATELET COMMENT ADEQUATE; POIKILOCYTOSIS 1+; SCHISTOCYTES SLIGHT; TOXIC GRANULATION SLIGHT; TOXIC VACUOLATION PRESENT
[2017-09-08 03:14] LABS: HYPERSEGMENTED NEUTROPHILS PRESENT
[2017-09-08] MEDS ORDERED: NORMAL SALINE 1000 ML 1,000 ML IV PRN (03:27)
[2017-09-08] MEDS ORDERED: NORMAL SALINE 1000 ML 1,000 ML IV ONE (03:36)
[2017-09-08 03:38] LABS: INTERNATIONAL RATION (INR) 1.23; PROTHROMBIN TIME 16.2 SEC (11.4-15.4)
[2017-09-08 03:39] LABS: PARTIAL THROMBOPLASTIN TIME 46.4 SEC (23.5-35.8)
[2017-09-08] MEDS ORDERED: CEFTRIAXONE 2 GM/D5W RTU 2 GM/50 ML RTUPB IV ONE (03:51)
[2017-09-08 03:57] LABS: CREATINE KINASE MB < 0.22 ng/mL (<4.55); TROPONIN I < 0.012 ng/mL
--- NOTE | 2017-09-08 04:28 | RADIOLOGY REPORT (SQ) ---
EXAM DESCRIPTION: CT HEAD WITHOUT IV CONTRAST COMPLETED DATE/TME: 09/08/2017 03:35 CLINICAL HISTORY: 66 years, Male, fever, altered mental status COMPARISON: 07/21/2017 TECHNIQUE: Axial CT images of the brain were obtained without contrast. Sagittal and coronal reformats were performed. DLP 1111 Images stored on PACS. All CT scanners at this facility use dose modulation, iterative reconstruction, and/or weight based dosing when appropriate to reduce radiation dose to as low as reasonably achievable (ALARA). [facility]: Dose Right [facility]: CareDose [facility]: Dose Right [facility]: Teradose 4D [facility]: Mendor LIMITATIONS: None. FINDINGS: There is no acute infarct, hemorrhage, mass, edema, hydrocephalus, or extra-axial fluid collection. A chronic left POST DOCTORAL FELLOW distribution infarct is noted, which was not present on the prior exam. A chronic appearing left cerebellar infarct is also noted, which is not present on the prior exam. There is mild diffuse cerebral atrophy with mild periventricular deep white matter chronic microvascular changes. There is no lacunar infarct involving the left basal ganglia. A mucus retention cyst is in the left maxillary sinus. The mastoid air cells are clear. There is no acute fracture IMPRESSION: No acute intracranial abnormality. Chronic appearing infarcts involving the left POST DOCTORAL FELLOW distribution and left cerebellum, which were not present on the prior exam. TECHNICAL DOCUMENTATION: Quality ID # 436: Final reports with documentation of one or more dose reduction techniques (e.g., Automated exposure control, adjustment of the mA and/or kV according to patient size, use of iterative reconstruction technique) 2010 [employer]- All Rights Reserved
[2017-09-08 04:30] LABS: APPEARANCE,URINE SLIGHTLY-CLOUDY; BILIRUBIN,URINE NEGATIVE (NEGATIVE); COLOR,URINE YELLOW; GLUCOSE, URINE NEGATIVE (NEGATIVE); KETONES,URINE NEGATIVE (NEGATIVE); LEUKOCYTE ESTERASE,URINE SMALL (NEGATIVE); NITRITE,URINE NEGATIVE (NEGATIVE); PROTEIN,URINE 30 mg/dL (NEGATIVE); URINE SPECIFIC GRAVITY 1.013
--- NOTE | 2017-09-08 04:39 | RADIOLOGY REPORT (SQ) ---
EXAM DESCRIPTION: XR CHEST 2 VIEWS COMPLETED DATE/TME: 09/08/2017 03:26 CLINICAL HISTORY: 66 years Male, fever, altered, fall COMPARISON: None. FINDINGS: Adequate lung volume, clear parenchyma, normal cardiac silhouette, atherosclerosis, and intact bony thorax. IMPRESSION: No acute cardiopulmonary findings.
[2017-09-08] MEDS ORDERED: IPRATROPIUM/ALBUTEROL 0.5-2.5 MG/3 ML AMPUL NEB PRN (08:11)
[2017-09-08] MEDS ORDERED: ONDANSETRON 4 MG TAB.RAPDIS PO PRN (08:11)
--- NOTE | 2017-09-08 08:35 | PDOC H&P ---
History of Present Illness Admission Date/PCP: 09/08/17 06:50 JACQUELYN ESPINAL PA-C History of Present Illness: FRANKLIN LEW is a 66 year old black male patient presented with chief complaint of fever, dysuria and generalized body weakness of 2 days duration. Patient denies any cough, chest pain, palpitation, diaphoresis, nausea or vomiting. Of note patient was admitted to this hospital 3 weeks ago for acute ischemic stroke involving the left cerebellum, left occipital lobe and left thalamus and the patient was discharged to acute rehab. Patient smokes 2 packs a day and his past medical history is also remarkable for uncontrolled hypertension. During this admission his blood work shows marked leukocytosis of 22,000 and his urinalysis also has evidence of a urinary tract infection. Chest x-ray is unremarkable except for COPD. Past Medical History Cardiac Medical History: Reports: Hypertension Social History Lives with: Family Smoking Status: Current Every Day Smoker Frequency of Alcohol Use: Rare Hx Recreational Drug Use: No Drugs: None Hx Prescription Drug Abuse: No - Advance Directive Resuscitation Status: Full Code Family History Family History: Malignancy Parental Family History Reviewed: Yes Children Family History Reviewed: Yes Sibling(s) Family History Reviewed.: Yes Medication/Allergy Allergies/Adverse Reactions: No Known Allergies Allergy (Verified 07/21/17 15:20) Review of Systems Constitutional: PRESENT: fever(s) Cardiovascular: ABSENT: chest pain, dyspnea on exertion, edema, orthropnea, palpitations Respiratory: ABSENT: cough, hemoptysis Gastrointestinal: ABSENT: abdominal pain, constipation, diarrhea, hematemesis, hematochezia, nausea, vomiting Genitourinary: PRESENT: difficulty urinating, dysuria Neurological: PRESENT: as per HPI, focal weakness Physical Exam Vital Signs: Temp Pulse Resp BP Pulse Ox 98.6 F 110 H 21 H 123/66 97 09/08/17 07:12 09/08/17 01:13 09/08/17 07:01 09/08/17 07:01 09/08/17 07:01 General appearance: PRESENT: no acute distress Head exam: PRESENT: atraumatic Eye exam: PRESENT: conjunctiva pink Mouth exam: PRESENT: moist Neck exam: ABSENT: carotid bruit, JVD, lymphadenopathy, thyromegaly Respiratory exam: PRESENT: clear to auscultation alfred. ABSENT: rales, rhonchi, wheezes Cardiovascular exam: PRESENT: RRR. ABSENT: diastolic murmur, rubs, systolic murmur GI/Abdominal exam: PRESENT: normal bowel sounds, soft. ABSENT: distended, guarding, mass, organolmegaly, rebound, tenderness Extremities exam: PRESENT: full ROM. ABSENT: calf tenderness, clubbing, pedal edema Neurological exam: PRESENT: alert, awake, other - Right-sided weakness Results Impressions: Chest X-Ray 09/08/17 03:26 IMPRESSION: No acute cardiopulmonary findings. Head CT 09/08/17 03:35 IMPRESSION: No acute intracranial abnormality. Chronic appearing infarcts involving the left NURSERY HELPER distribution and left cerebellum, which were not present on the prior exam. TECHNICAL DOCUMENTATION: Quality ID # 436: Final reports with documentation of one or more dose reduction techniques (e.g., Automated exposure control, adjustment of the mA and/or kV according to patient size, use of iterative reconstruction technique) 2010 [employer]- All Rights Reserved Assessment & Plan - Diagnosis (1) Sepsis Qualifiers: Sepsis type: sepsis due to unspecified organism Qualified Code(s): A41.9 - Sepsis, unspecified organism Is this a current diagnosis for this admission?: Yes Plan: Most probably sepsis of urinary tract origin, patient has leukocytosis, fever and tachycardia. Patient has been started on ceftriaxone. (2) Leukocytosis Is this a current diagnosis for this admission?: Yes Plan: We will closely follow his white cell count. (3) Hypertension Qualifiers: Hypertension type: essential hypertension Qualified Code(s): I10 - Essential (primary) hypertension Is this a current diagnosis for this admission?: Yes Plan: Continue home medication (4) Recent history of stroke Is this a current diagnosis for this admission?: Yes Plan: Continue home medications
[2017-09-08] MEDS: FAMOTIDINE 20 MG TABLET PO SCH ×2 (10:03→22:51)
[2017-09-08] MEDS: ENOXAPARIN SODIUM INJ 40 MG/0.4 ML DISP.SYRIN SUBCUT SCH (10:03)
[2017-09-08] MEDS: CEFTRIAXONE 2 GM/D5W RTU 2 GM/50 ML RTUPB IV SCH (10:03)
[2017-09-09 06:50] LABS: ABSOLUTE BASOPHILS # (AUTO) 0.1 10^3/uL (0.0-0.2); ABSOLUTE EOSINOPHILS # (AUTO) 0.4 10^3/uL (0.0-0.6); ABSOLUTE LYMPHOCYTES (AUTO) 2.2 10^3/uL (0.5-4.7); ABSOLUTE MONOCYTES (AUTO) 1.5 10^3/uL (0.1-1.4); ABSOLUTE NEUT (AUTO) 11.3 10^3/uL (1.7-8.2); BASOPHILS % (AUTO) 0.5 % (0-2); EOSINOPHILS % (AUTO) 2.4 % (0-6); HEMOGLOBIN 10.8 g/dL (13.5-17.0); LYMPHOCYTES % (AUTO) 14.4 % (13-45); MEAN CORPUSCULAR HEMOGLOBIN 30.8 pg (27.0-33.4); MEAN CORPUSCULAR HGB CONC 33.6 g/dL (32.0-36.0); MEAN CORPUSCULAR VOLUME 92 fl (80-97); MONOCYTES % (AUTO) 9.7 % (3-13); PLATELET COUNT 160 10^3/uL (150-450); RED CELL DISTRIBUTION WIDTH 14.1 % (11.5-14.0); TOTAL CELLS COUNTED % (AUTO) 100 %; WHITE BLOOD COUNT 15.5 10^3/uL (4.0-10.5)
[2017-09-09 07:12] LABS: ANION GAP 11 (5-19); BLOOD UREA NITROGEN 18 mg/dL (7-20); CALCIUM 8.8 mg/dL (8.4-10.2); CARBON DIOXIDE 26 mmol/L (22-30); CHLORIDE 106 mmol/L (98-107); CHOLESTEROL 137.14 mg/dL (0-200); GLUCOSE 83 mg/dL (75-110); TRIGLYCERIDES 84 mg/dL (<150)
[2017-09-09 07:23] LABS: DIRECT LDL 61 mg/dL (<100)
[2017-09-09] MEDS: CEFTRIAXONE 2 GM/D5W RTU 2 GM/50 ML RTUPB IV SCH (09:53)
[2017-09-09] MEDS: ENOXAPARIN SODIUM INJ 40 MG/0.4 ML DISP.SYRIN SUBCUT SCH (09:53)
[2017-09-09] MEDS: FAMOTIDINE 20 MG TABLET PO SCH ×2 (09:54→22:03)
--- NOTE | 2017-09-09 16:18 | PDOC PROGRESS REPORT ---
Subjective Progress Note for:: 09/09/17 - seen on rounds this morning Subjective:: states he feels much better today. has no complaints at this time. wondering if can leave today Reason For Visit: SEPSIS,UTI Physical Exam Vital Signs: Temp Pulse Resp BP Pulse Ox 98.6 F 66 16 118/60 98 09/09/17 11:30 09/09/17 15:43 09/09/17 15:43 09/09/17 11:30 09/09/17 15:43 Intake & Output 09/08/17 09/09/17 09/10/17 06:59 06:59 06:59 Intake Total 50 50 Balance 50 50 Weight 133 lb 6.075 oz General appearance: PRESENT: no acute distress, thin Head exam: PRESENT: atraumatic, normocephalic Eye exam: PRESENT: EOMI, PERRLA Ear exam: PRESENT: normal external ear exam Mouth exam: PRESENT: moist, neck supple, tongue midline Neck exam: PRESENT: full ROM. ABSENT: tracheal deviation Respiratory exam: PRESENT: clear to auscultation alfred, symmetrical. ABSENT: decreased breath sounds Cardiovascular exam: PRESENT: +S1, +S2 Pulses: PRESENT: +2 pedal pulses bilateral GI/Abdominal exam: PRESENT: normal bowel sounds, soft. ABSENT: tenderness Gentrourinary exam: PRESENT: indwelling catheter Extremities exam: ABSENT: +2 edema Neurological exam: PRESENT: alert, awake, oriented to person, oriented to place , oriented to time, oriented to situation, CN II-XII grossly intact Skin exam: PRESENT: dry, warm Results Laboratory Results: 09/09/17 06:12 09/09/17 06:12 09/09/17 09/09/17 06:12 06:12 WBC 15.5 H RBC 3.50 L Hgb 10.8 L Hct 32.0 L MCV 92 MCH 30.8 MCHC 33.6 RDW 14.1 H Plt Count 160 Seg Neutrophils % 73.0 Lymphocytes % 14.4 Monocytes % 9.7 Eosinophils % 2.4 Basophils % 0.5 Absolute Neutrophils 11.3 H Absolute Lymphocytes 2.2 Absolute Monocytes 1.5 H Absolute Eosinophils 0.4 Absolute Basophils 0.1 Sodium 143.0 Potassium 4.0 Chloride 106 Carbon Dioxide 26 Anion Gap 11 BUN 18 Creatinine 1.04 Est GFR ( Amer) > 60 Est GFR (Non-Af Amer) > 60 Glucose 83 Calcium 8.8 Triglycerides 84 Cholesterol 137.14 LDL Cholesterol Direct 61 VLDL Cholesterol 17.0 HDL Cholesterol 34 L Impressions: Chest X-Ray 09/08/17 03:26 IMPRESSION: No acute cardiopulmonary findings. Head CT 09/08/17 03:35 IMPRESSION: No acute intracranial abnormality. Chronic appearing infarcts involving the left LOSS PREVENTION/SAFETY DISTRICT MANAGER distribution and left cerebellum, which were not present on the prior exam. TECHNICAL DOCUMENTATION: Quality ID # 436: Final reports with documentation of one or more dose reduction techniques (e.g., Automated exposure control, adjustment of the mA and/or kV according to patient size, use of iterative reconstruction technique) 2010 [employer]- All Rights Reserved Assessment & Plan - Diagnosis (1) Sepsis Qualifiers: Sepsis type: sepsis due to unspecified organism Qualified Code(s): A41.9 - Sepsis, unspecified organism Is this a current diagnosis for this admission?: Yes Plan: likely 2/2 UTI- positive for E. Coli in Urine. Bcx negative so far. c/w rocephin. likely can transition to PO when sensitivities are available. he's doing better now. (2) UTI (urinary tract infection) Qualifiers: Urinary tract infection type: site unspecified Hematuria presence: without hematuria Qualified Code(s): N39.0 - Urinary tract infection, site not specified Is this a current diagnosis for this admission?: Yes Plan: see plan above (3) Recent history of stroke Is this a current diagnosis for this admission?: Yes Plan: right sided weakness from recent stroke. will restart all home meds. - Plan Summary Plan Summary: d/c home in 1-2 days if he continues to improve
[2017-09-09] MEDS ORDERED: ATORVASTATIN CALCIUM 80 MG TABLET PO SCH (22:00)
[2017-09-10 05:43] LABS: ABSOLUTE EOSINOPHILS # (AUTO) 0.6 10^3/uL (0.0-0.6); ABSOLUTE LYMPHOCYTES (AUTO) 2.9 10^3/uL (0.5-4.7); ABSOLUTE MONOCYTES (AUTO) 1.2 10^3/uL (0.1-1.4); ABSOLUTE NEUT (AUTO) 4.6 10^3/uL (1.7-8.2); BASOPHILS % (AUTO) 0.4 % (0-2); EOSINOPHILS % (AUTO) 6.7 % (0-6); HEMATOCRIT 30.8 % (37.9-51.0); HEMOGLOBIN 10.6 g/dL (13.5-17.0); LYMPHOCYTES % (AUTO) 30.8 % (13-45); MEAN CORPUSCULAR HEMOGLOBIN 31.4 pg (27.0-33.4); MEAN CORPUSCULAR HGB CONC 34.5 g/dL (32.0-36.0); MEAN CORPUSCULAR VOLUME 91 fl (80-97); MONOCYTES % (AUTO) 12.4 % (3-13); PLATELET COUNT 184 10^3/uL (150-450); RED BLOOD COUNT 3.38 10^6/uL (4.35-5.55); RED CELL DISTRIBUTION WIDTH 14.2 % (11.5-14.0); SEGMENTED NEUTROPHILS % (AUTO) 49.7 % (42-78); TOTAL CELLS COUNTED % (AUTO) 100 %; WHITE BLOOD COUNT 9.3 10^3/uL (4.0-10.5)
[2017-09-10 06:08] LABS: ANION GAP 11 (5-19); BLOOD UREA NITROGEN 16 mg/dL (7-20); CALCIUM 8.4 mg/dL (8.4-10.2); CARBON DIOXIDE 25 mmol/L (22-30); CHLORIDE 107 mmol/L (98-107); GLUCOSE 103 mg/dL (75-110); POTASSIUM 3.8 mmol/L (3.6-5.0); SODIUM 142.6 mmol/L (137-145)
[2017-09-10] MEDS: FAMOTIDINE 20 MG TABLET PO SCH (09:15)
[2017-09-10] MEDS: ENOXAPARIN SODIUM INJ 40 MG/0.4 ML DISP.SYRIN SUBCUT SCH (09:16)
[2017-09-10] MEDS: CEFTRIAXONE 2 GM/D5W RTU 2 GM/50 ML RTUPB IV SCH (09:16)
[2017-09-10] MEDS ORDERED: CLOPIDOGREL BISULFATE 75 MG TABLET PO SCH (10:00)
[2017-09-10] MEDS ORDERED: LISINOPRIL 10 MG TABLET PO SCH (10:00)
[2017-09-10] MEDS ORDERED: AMLODIPINE BESYLATE 5 MG TABLET PO SCH (10:00)
[2017-09-10] MEDS ORDERED: ASPIRIN 81 MG TABLET, ENT COATED PO SCH (10:00)
--- NOTE | 2017-09-10 15:28 | PDOC DISCHARGE SUMMARY ---
General - Admit/Disc Date/PCP Admission Date/Primary Care Provider: 09/08/17 06:50 JACQUELYN ESPINAL PA-C Discharge Date: 09/10/17 - Discharge Diagnosis (1) Sepsis Is this a current diagnosis for this admission?: Yes (2) UTI (urinary tract infection) Is this a current diagnosis for this admission?: Yes (3) Recent history of stroke Is this a current diagnosis for this admission?: Yes - Additional Information Resuscitation Status: Full Code Home Medications: Amlodipine Besylate [Norvasc 5 mg Tablet] 5 mg PO DAILY 09/08/17 Aspirin [Aspirin EC] 81 mg PO DAILY 09/08/17 Atorvastatin Calcium [Lipitor 80 mg Tablet] 80 mg PO QHS 09/08/17 Clopidogrel Bisulfate [Plavix 75 mg Tablet] 75 mg PO DAILY 09/08/17 Lisinopril [Zestril] 10 mg PO DAILY 09/08/17 History of Present Illness History of Present Illness: FRANKLIN LEW is a 66 year old male fever, dysuria, and weakness. see H&P for full details Hospital Course Hospital Course: after admission he was started on rocephin. a hills was placed in the ED. hills removed today and he's voiding freely. UCx shows citrobacter positive- sensitive to augmentin- will send him home on 4 more days or antibiotics- total 7 days antibiotics. needs follow up with PCP within 1-2 weeks. Physical Exam Vital Signs: Temp Pulse Resp BP Pulse Ox 97.6 F 70 15 130/76 H 100 09/10/17 11:47 09/10/17 14:00 09/10/17 11:47 09/10/17 11:47 09/10/17 11:47 Intake & Output 09/09/17 09/10/17 09/11/17 06:59 06:59 06:59 Intake Total 50 700 50 Output Total 775 Balance 50 -75 50 Weight 133 lb 6.075 oz 134 lb 4.184 oz General appearance: PRESENT: no acute distress, thin, well-developed, well- nourished Head exam: PRESENT: atraumatic, normocephalic Eye exam: PRESENT: EOMI, PERRLA. ABSENT: scleral icterus Ear exam: PRESENT: normal external ear exam Mouth exam: PRESENT: moist, neck supple Neck exam: ABSENT: tracheal deviation Respiratory exam: PRESENT: clear to auscultation alfred, symmetrical Cardiovascular exam: PRESENT: +S1, +S2 Pulses: PRESENT: +2 pedal pulses bilateral GI/Abdominal exam: PRESENT: normal bowel sounds, soft. ABSENT: tenderness Neurological exam: PRESENT: alert, oriented to person, oriented to place, oriented to time, oriented to situation, CN II-XII grossly intact Skin exam: PRESENT: dry, warm Results Laboratory Results: 09/10/17 05:10 09/10/17 05:10 09/10/17 09/10/17 05:10 05:10 WBC 9.3 RBC 3.38 L Hgb 10.6 L Hct 30.8 L MCV 91 MCH 31.4 MCHC 34.5 RDW 14.2 H Plt Count 184 Seg Neutrophils % 49.7 Lymphocytes % 30.8 Monocytes % 12.4 Eosinophils % 6.7 H Basophils % 0.4 Absolute Neutrophils 4.6 Absolute Lymphocytes 2.9 Absolute Monocytes 1.2 Absolute Eosinophils 0.6 Absolute Basophils 0.0 Sodium 142.6 Potassium 3.8 Chloride 107 Carbon Dioxide 25 Anion Gap 11 BUN 16 Creatinine 0.82 Est GFR ( Amer) > 60 Est GFR (Non-Af Amer) > 60 Glucose 103 Calcium 8.4 Impressions: Chest X-Ray 09/08/17 03:26 IMPRESSION: No acute cardiopulmonary findings. Head CT 09/08/17 03:35 IMPRESSION: No acute intracranial abnormality. Chronic appearing infarcts involving the left CASE PICKER distribution and left cerebellum, which were not present on the prior exam. TECHNICAL DOCUMENTATION: Quality ID # 436: Final reports with documentation of one or more dose reduction techniques (e.g., Automated exposure control, adjustment of the mA and/or kV according to patient size, use of iterative reconstruction technique) 2010 [employer]- All Rights Reserved Qualifiers - * PATIENT BEING DISCHARGED WITH ANY OF THE FOLLOWING DIAGNOSIS: No VTE patient discharged on overlapping Therapy?: No
[2017-09-10 17:10] VITALS: BP 119/66
== END 2017-09-10 17:11 | disposition home or self-care (01) | DRG 872 ==
LOC: ER 01:05 → OBSVTOIN 06:50 → EH 06:50 → 4S 19:11
PROVIDERS: ADMIT Internal Medicine; ATTEND Internal Medicine
DX: A41.9 Sepsis, unspecified organism (principal); N39.0 Urinary tract infection, site not specified; I10 Essential (primary) hypertension; F17.210 Nicotine dependence, cigarettes, uncomplicated; Z86.73 Personal history of transient ischemic attack (TIA), and cerebral infarction without residual deficits; Z79.01 Long term (current) use of anticoagulants; Z79.82 Long term (current) use of aspirin; Z79.899 Other long term (current) drug therapy
CPT/HCPCS: 36415; 51702; 70450; 71046; 76705; 80048; 80053; 80061; 81001; 82550; 82553; 83605; 84484; 85025; 85610; 85730; 87040; 87086; 87088; 87186; 96361; 96365; 96372; 99285; J0696; J1650; J7030

== ENCOUNTER → 2017-12-28 | Outpatient (CLI) | payer MEDICARE, MEDICAID ==
[2017-12-28 12:56] LABS: ALANINE AMINOTRANSFERASE 46 U/L (21-72); ALBUMIN 4.2 g/dL (3.5-5.0); ALKALINE PHOSPHATASE 106 U/L (38-126); ANION GAP 10 (5-19); ASPARTATE AMINO TRANSFERASE 30 U/L (17-59); BILIRUBIN,DIRECT 0.2 mg/dL (0.0-0.4); BILIRUBIN,TOTAL 0.3 mg/dL (0.2-1.3); BLOOD UREA NITROGEN 21 mg/dL (7-20); CALCIUM 9.5 mg/dL (8.4-10.2); CARBON DIOXIDE 30 mmol/L (22-30); CHLORIDE 103 mmol/L (98-107); CHOLESTEROL 134.89 mg/dL (0-200); GLUCOSE 109 mg/dL (75-110); POTASSIUM 4.4 mmol/L (3.6-5.0); SODIUM 143.2 mmol/L (137-145); TOTAL PROTEIN 7.8 g/dL (6.3-8.2); TRIGLYCERIDES 45 mg/dL (<150)
[2017-12-28 13:06] LABS: DIRECT LDL 77 mg/dL (<100)
== END ==
LOC: OD 11:48
PROVIDERS: ATTEND Family Medicine
DX: Z13.1 Encounter for screening for diabetes mellitus (principal); E78.5 Hyperlipidemia, unspecified
CPT/HCPCS: 36415; 80053; 80061

== ENCOUNTER → 2018-08-30 | Outpatient (CLI) | payer MEDICARE, MEDICAID ==
--- NOTE | 2018-08-30 14:21 | RADIOLOGY REPORT (SQ) ---
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 TECHNIQUE: Grayscale ultrasound, Doppler velocity and spectra, and color Doppler images acquired of the extra-cranial carotid and vertebral arteries. Images stored on PACS. LIMITATIONS: None. FINDINGS: RIGHT CAROTID CCA Velocities: Within normal limits. ICA Velocities Peak systolic 90 cm/s. End diastolic 25 cm/s. Proximal ICA/CCA peak systolic ratio 1.32. Spectra normal. No significant plaque. LEFT CAROTID CCA Velocities: Within normal limits. ICA Velocities Peak systolic 91 cm/s. End diastolic 27 cm/s. Proximal ICA/CCA peak systolic ratio 0.93. Spectra normal. No significant plaque. VERTEBRAL ARTERIES: Antegrade flow. Normal waveforms. SUBCLAVIAN ARTERIES: No finding. OTHER: No other significant finding. IMPRESSION: NO HEMODYNAMICALLY SIGNIFICANT STENOSIS. COMMENT: Quality ID #195: Velocity criteria are extrapolated from the diameter data as defined by t he Society of Radiologists in Ultrasound Consensus Conference. Radiology 2003: 229; 340-346. TECHNICAL DOCUMENTATION: JOB ID: [id number] [email or web address]- All Rights Reserved Reading location - IP/workstation name: [email or web address]
== END ==
LOC: SP 12:48
PROVIDERS: ATTEND Surgery
DX: I65.22 Occlusion and stenosis of left carotid artery (principal)
CPT/HCPCS: 93880

== ENCOUNTER → 2019-03-26 | Outpatient (CLI) | payer MEDICARE, MEDICAID ==
[2019-03-26 13:59] LABS: ALBUMIN 4.1 g/dL (3.5-5.0); ALKALINE PHOSPHATASE 135 U/L (38-126); ANION GAP 8 (5-19); ASPARTATE AMINO TRANSFERASE 30 U/L (17-59); BILIRUBIN,TOTAL 0.5 mg/dL (0.2-1.3); BLOOD UREA NITROGEN 15 mg/dL (7-20); CALCIUM 9.3 mg/dL (8.4-10.2); CARBON DIOXIDE 30 mmol/L (22-30); CHLORIDE 104 mmol/L (98-107); CHOLESTEROL 145.23 mg/dL (0-200); GLUCOSE 143 mg/dL (75-110); POTASSIUM 4.2 mmol/L (3.6-5.0); TOTAL PROTEIN 7.7 g/dL (6.3-8.2); TRIGLYCERIDES 124 mg/dL (<150)
[2019-03-26 14:11] LABS: DIRECT LDL 88 mg/dL (<100)
== END ==
LOC: OD 12:59
PROVIDERS: ATTEND Family Medicine
DX: E78.5 Hyperlipidemia, unspecified (principal); R97.20 Elevated prostate specific antigen [PSA]; I10 Essential (primary) hypertension
CPT/HCPCS: 36415; 80053; 80061; 84153

== ENCOUNTER → 2019-04-09 | Outpatient (CLI) | payer MEDICARE, MEDICAID | LOC: OD 12:41 | PROVIDERS: ATTEND Family Medicine | DX: R73.01 Impaired fasting glucose (principal) | CPT/HCPCS: 36415; 83036 ==

== ENCOUNTER → 2019-07-18 | Outpatient (CLI) | payer MEDICARE, MEDICAID ==
[2019-07-18 14:07] LABS: ANION GAP 7 (5-19); BLOOD UREA NITROGEN 13 mg/dL (7-20); CALCIUM 9.4 mg/dL (8.4-10.2); CARBON DIOXIDE 27 mmol/L (22-30); CHLORIDE 107 mmol/L (98-107); GLUCOSE 126 mg/dL (75-110); POTASSIUM 4.2 mmol/L (3.6-5.0)
== END ==
LOC: OD 13:13
PROVIDERS: ATTEND Family Medicine
DX: E11.9 Type 2 diabetes mellitus without complications (principal)
CPT/HCPCS: 36415; 80048; 83036

== ENCOUNTER → 2019-11-07 | Outpatient (CLI) | payer MEDICARE, MEDICAID ==
--- NOTE | 2019-11-07 10:40 | RADIOLOGY REPORT (SQ) ---
EXAM DESCRIPTION: U/S ABD AORTIC SCREENING IMAGES COMPLETED DATE/TIME: 11/07/2019 9:45 am REASON FOR STUDY: Z13.6 ENCOUNTER FOR SCREENING FOR CARDIOVASCULAR DISORDERS Z87.891 PERSONAL HISTO RY OF NICOTINE DEPENDENCE Z13.6 ENCOUNTER FOR SCREENING FOR CARDIOVASCULAR DISORDERS COMPARISON: None. TECHNIQUE: Static and dynamic grayscale images acquired of the aorta and stored on PACs. Selected co lazaro Doppler and spectral images recorded. LIMITATIONS: None. FINDINGS: AORTIC CALIBER MAXIMAL PROXIMAL: 1.9 cm. MID: 1.9 cm. DISTAL: 2.2 cm. ILIAC DIAMETER RIGHT: 1.7 cm. LEFT: 2.1 cm. OTHER: No other significant finding. IMPRESSION: NO ABDOMINAL AORTIC ANEURYSM. COMMENT: Aortic aneurysm imaging followup: 2.1-2.5 cm Not AAA. No followup recommended. *Based upon the ACR White Paper in the J Am Leatha Radiol 2013;10 (10):789-794. *For aortas of maximum diameter of 2.6-2.9 cm meeting the criteria for AAA (?1.5 x proximal normal se gment) TECHNICAL DOCUMENTATION: JOB ID: [id number] 2010 [employer]- All Rights Reserved Reading location - IP/workstation name: [email or web address]
--- NOTE | 2019-11-07 15:31 | RADIOLOGY REPORT (SQ) ---
EXAM DESCRIPTION: CT LUNG CANCER SCREENING IMAGES COMPLETED DATE/TIME: 11/07/2019 9:05 am REASON FOR STUDY: Z87.891 PERSONAL HISTORY OF NICOTINE DEPENDENCE Z87.891 PERSONAL HISTORY OF NICOT INE DEPENDENCE I63.9 CEREBRAL INFARCTION, UNSPECIFIED Z13.6 ENCOUNTER FOR SCREENING FOR CARDIOVASCU LAR DISORDERS Has the patient had a Chest CT scan within the past year? N Was the patient offered tobacco cessation counseling? Y Was the patient engaged in shared decision making for this test? Y Does the patient have signs or symptoms of Lung Cancer? N Is the patient a smoker? N How many pack years? 40YR How many years since quitting smoking? 2YR Patients age: 69 COMPARISON: None. TECHNIQUE: Low Dose CT scan performed of the chest without intravenous contrast for purposes of scre ening for lung cancer. Images reviewed with lung, soft tissue and bone windows. Reconstructed coron al and sagittal MPR images reviewed. All images stored on PACS. All CT scanners at this facility use dose modulation, iterative reconstruction, and/or weight based d osing when appropriate to reduce radiation dose to as low as reasonably achievable (ALARA). [facility]: Dose Right [facility]: CareDose [facility]: Dose Right [facility]: Teradose 4D [facility]: Smart NN [facility] RADIATION DOSE: CT Rad equipment meets quality standard of care and radiation dose reduction techniq ues were employed. CTDIvol: 2.1 mGy. DLP: 92 mGy-cm. mGy. . LIMITATIONS: None FINDINGS: LUNGS AND PLEURA: No masses or nodules. No pleural effusions or calcifications. No pne umothorax. Mild emphysema. HILAR AND MEDIASTINAL STRUCTURES: No identified masses. No abnormal nodes. HEART AND VASCULAR STRUCTURES: No aortic aneurysm. No pericardial effusion. No cardiac devices. CORONARY ARTERY CALCIFICATIONS: Marked calcifications. UPPER ABDOMEN, THYROID, BONES, OTHER SOFT TISSUES: No significant findings. IMPRESSION: NO EVIDENCE OF LUNG CANCER. OTHER FINDINGS ABOVE. LUNGRADS: LUNGRADS: 1 NEGATIVE. NO NODULES, OR DEFINITELY BENIGN NODULES MODIFIER: NONE RECOMMENDATION: Continue annual screening with LDCT in 12 months. COMMENT: CRITERIA: No lung nodules. Nodules with specific calcifications: Complete, central, popcorn, concentric rings and fat containin g nodules. TECHNICAL DOCUMENTATION: JOB ID: [id number] Quality ID # 436: Final reports with documentation of one or more dose reduction techniques (e.g., Au tomated exposure control, adjustment of the mA and/or kV according to patient size, use of iterative reconstruction technique) 2010 [facility] Radiology Reading location - IP/workstation name: [email or web address]
== END ==
LOC: RAD 08:45
PROVIDERS: ATTEND Family Medicine
DX: Z12.2 Encounter for screening for malignant neoplasm of respiratory organs (principal); Z13.6 Encounter for screening for cardiovascular disorders; Z87.891 Personal history of nicotine dependence; J43.9 Emphysema, unspecified
CPT/HCPCS: 76706; G0297